=== PATIENT | female | born 1970 | race Caucasian/White ===

== ENCOUNTER → 2019-03-26 07:54 | Outpatient (CLI) | payer OTHER, SELFPAY ==
[2019-03-26 08:37] LABS: Add Manual Diff / Slide Review NO; Basophils Absolute Auto 100 /uL (0-100); Eosinophils Absolute Auto 200 /uL (0-450); Eosinophils Percent Auto 3.2 % (2-4); Hematocrit 40.5 % (36-46); Hemoglobin 13.1 g/dL (12.0-16.0); Lymphocytes Absolute Auto 2000 /uL (1100-4500); Mean Corpuscular HGB Conc 32.4 % (30-36); Mean Corpuscular Hemoglobin 30.2 PG (26-34); Mean Corpuscular Volume 93.3 fL (80-100); Monocytes Absolute Auto 500 /uL (0-900); Monocytes Percent Auto 7.9 % (3-14); Neutrophils Absolute Auto 3700 /uL (1500-7000); Neutrophils Percent Auto 56.9 % (50-75); Platelet Count 250 X10^3/uL (150-400); Red Blood Cell Count 4.34 X10^6/uL (4.0-5.2); White Blood Cell Count 6.5 X10^3/uL (4.5-11.0)
[2019-03-26 08:45] LABS: Hemoglobin A1C% w Est Avg Glu 5.2 % (4.0-6.0)
[2019-03-26 08:55] LABS: Alanine Aminotransferase 24 IU/L (9-52); Albumin 4.1 g/dL (3.5-5.0); Albumin Globulin Ratio 1.3 (1.0-2.8); Alkaline Phosphatase 38 U/L (38-126); Aspartate Aminotransferase 36 IU/L (14-36); Bilirubin Total 0.9 mg/dL (0.2-1.3); Blood Urea Nitrogen 20 mg/dL (7-17); Calcium 9.1 mg/dL (8.4-10.2); Carbon Dioxide 26 mmol/L (22-32); Chloride 105 mmol/L (98-107); Estimated Glomerular Filt Rate > 60.0 mL/min (>60); Globulin 3.1 g/dL (1.7-4.1); Glucose 106 mg/dL (70-100); HEMOLYSIS < 15 (0-50); Iron 170 ug/dL (37-170); Potassium 4.1 mmol/L (3.4-5.1); Sodium 137 mmol/L (137-145); Total Protein 7.2 g/dL (6.3-8.2)
[2019-03-26 09:11] LABS: Vitamin D 25 Hydroxy (D3) 40.4 ng/mL (30.0-100.0)
[2019-03-26 09:26] LABS: Thyroid Stimulating Hormone 2.93 uIU/mL (0.47-4.68)
== END ==
PROVIDERS: Family Provider Physician Assistant; PCP Physician Assistant; Visit Provider Physician Assistant
DX: Z00.00 Encounter for general adult medical examination without abnormal findings (principal)
CPT/HCPCS: 36415; 80053; 82306; 83036; 83540; 84443; 85025

== ENCOUNTER → 2019-11-28 17:13 | Outpatient (CLI) | payer OTHER, SELFPAY ==
--- NOTE | 2019-11-28 17:16 | DI.RAD.S_ITS ---
PROCEDURE: XR PELVIS 1-2V INDICATIONS: three weeks of severe pain TECHNIQUE: 1 view of the pelvis acquired. COMPARISON: None. FINDINGS: Bones: No fractures or dislocations. No suspicious bony lesions. Soft tissues: Visualized bowel gas pattern is normal. No suspicious soft tissue calcifications. IMPRESSION: No visualized acute fracture or dislocation. However, if clinical concern and/or pain persist, short interval imaging followup in 7-10 days is recommended, as occult injury cannot be definitively excluded. Dictated by: Betty High M.D. on 11/29/2019 at 9:45 Approved by: Betty High M.D. on 11/29/2019 at 9:46
== END ==
PROVIDERS: Family Provider Physician Assistant; PCP Physician Assistant; Visit Provider Family Medicine
DX: M54.40 Lumbago with sciatica, unspecified side (principal)
CPT/HCPCS: 72170

== ENCOUNTER → 2020-06-10 07:23 | Outpatient (CLI) | payer OTHER, SELFPAY ==
[2020-06-10 08:29] LABS: Add Manual Diff / Slide Review NO; Basophils Absolute Auto 100 /uL (0-100); Basophils Percent Auto 1.1 % (0-2); Eosinophils Absolute Auto 300 /uL (0-450); Eosinophils Percent Auto 3.3 % (2-4); Hematocrit 37.3 % (36-46); Hemoglobin 12.4 g/dL (12.0-16.0); Lymphocytes Absolute Auto 2700 /uL (1100-4500); Lymphocytes Percent Auto 34.7 % (25-40); Mean Corpuscular HGB Conc 33.2 % (30-36); Mean Corpuscular Hemoglobin 30.9 PG (26-34); Monocytes Absolute Auto 700 /uL (0-900); Monocytes Percent Auto 8.4 % (3-14); Neutrophils Absolute Auto 4100 /uL (1500-7000); Neutrophils Percent Auto 52.5 % (50-75); Platelet Count 283 X10^3/uL (150-400); Red Blood Cell Count 4.01 X10^6/uL (4.0-5.2); Red Cell Distribution Width 13.2 % (11.6-14.8); White Blood Cell Count 7.8 X10^3/uL (4.5-11.0)
[2020-06-10 09:04] LABS: Albumin 4.1 g/dL (3.5-5.0); Albumin Globulin Ratio 1.6 (1.0-2.8); Alkaline Phosphatase 39 U/L (38-126); Aspartate Aminotransferase 37 IU/L (14-36); BUN Creatinine Ratio 22.4 (6-22); Bilirubin Total 0.6 mg/dL (0.2-1.3); Blood Urea Nitrogen 17 mg/dL (7-17); Calcium 9.7 mg/dL (8.4-10.2); Carbon Dioxide 28 mmol/L (22-32); Chloride 104 mmol/L (98-107); Cholesterol 199 mg/dL (140-199); Estimated Glomerular Filt Rate > 60.0 mL/min (>60); Globulin 2.6 g/dL (1.7-4.1); Glucose 105 mg/dL (70-100); HDL Cholesterol 74 mg/dL (40-60); HEMOLYSIS < 15 (0-50); LDL Cholesterol Calculated 109 mg/dL (<100); Potassium 4.3 mmol/L (3.4-5.1); Sodium 137 mmol/L (137-145); Total Protein 6.7 g/dL (6.3-8.2); Triglycerides 79 mg/dL (35-150)
[2020-06-10 09:05] LABS: C-Reactive Protein Quant < 0.5 mg/dL (<1.0)
[2020-06-10 09:13] LABS: Free T4, Direct Thyroxine 1.16 ng/dL (0.78-2.19)
[2020-06-10 09:15] LABS: Vitamin D 25 Hydroxy (D3) 59.5 ng/mL (30.0-100.0)
[2020-06-10 09:27] LABS: Thyroid Stimulating Hormone 3.45 uIU/mL (0.47-4.68)
[2020-06-10 09:33] LABS: Ferritin 10 ng/mL (11-264)
[2020-06-10 14:30] LABS: Alanine Aminotransferase 31 IU/L (<35)
== END ==
PROVIDERS: PCP Family Medicine; Referring Provider Family Medicine; Visit Provider Family Medicine
DX: Z00.00 Encounter for general adult medical examination without abnormal findings (principal); L65.9 Nonscarring hair loss, unspecified; Z86.2 Personal history of diseases of the blood and blood-forming organs and certain disorders involving the immune mechanism; E55.9 Vitamin D deficiency, unspecified
CPT/HCPCS: 36415; 80053; 80061; 82306; 82728; 84439; 84443; 84481; 85025; 86140

== ENCOUNTER 2020-06-17 12:00 | Outpatient (RCR) | payer OTHER, SELFPAY ==
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
--- NOTE | 2020-02-03 13:02 | PT.OTN ---
Current Diagnoses Lesion of sciatic nerve, left lower limb (02/03/20) Low back pain (02/03/20) Iliotibial band syndrome, left leg (02/03/20) Physical Therapy Treatment Note PT-OP-A Visit Information Start: 01/28/20 15:35 Freq: Status: Active Protocol: Document 02/03/20 12:20 MB (Rec: 02/03/20 13:00 MB [id number]) Out-Patient Physical Therapy Visit Information Visit Information Visit Type Treatment Note Visit Note Pt has cost share insurance and high OOP Visit Start Time 12:20 Visit Stop Time 13:00 Total Visit Minutes 40 Visit Number 2 PT-OP-B Current Condition Start: 01/28/20 15:35 Freq: Status: Active Protocol: Document 01/29/20 13:45 MB (Rec: 01/29/20 14:44 MB [id number]) Current Condition History of Current Condition Onset Date October 2019 Current Complaints Sacral and LB and left ischial pain and left hamstring numbness History of Current Condition Left sacral and left ischial tuberosity pain and numbness down left hamstring and tenderness down lateral left leg proximal part after foot went out from under her with a jerk and catch down hill. She has numbness down to her left toes. Pt likes to hike and con't to take her dogs out. She uses her hiking sticks when she walks. Pt has trouble walking down the steps. She has 7 steps in the house. Her pain gets as bad as 8/10. 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 One was bad as far as the epidural. She felt like her center of gravity changed after first child. She describes inability to do aerial cartwheels and dive off spring board afterwards. Prior Treatments and Tests Left elbow and shoulder injury and ongoing left upper shoulder/neck pain after fall 10 years ago Left thumb arthritis and pain. Pt has been getting dry needling from Dr. Fernández for upper traps, mid back, sacrum and left glutes. She got a steroid injection in left greater trochanter bursa and she is on her third round of Prednisone. She occ takes muscle relaxer. Pelvis x-ray negative Treatment Goals Patient/Caregiver Goals To decrease pain and increase mobility and strength PT-OP-C Subjective Start: 01/28/20 15:35 Freq: Status: Active Protocol: Document 02/03/20 12:20 MB (Rec: 02/03/20 13:02 MB [id number]) OP-PT Subjective Patient Comments Patient Comments Pt asks about SI belt. PT-OP-D Balance Start: 01/28/20 15:35 Freq: Status: Active Protocol: Document 01/29/20 13:45 MB (Rec: 01/29/20 15:10 MB [id number]) OP-PT Balance Assessment Sitting Balance Static Sitting Balance Ability Good Dynamic Sitting Balance Ability Good Sitting Balance Comments UE support, unweights left hip Standing Balance Static Standing Balance Ability Good Dynamic Standing Balance Ability Good Standing Balance Comments Off weights her left foot in standing Balance Tests Single Limb Standing Single Limb- Right 20 sec Single Limb- Left 20 sec Gandara Fall Scale Copyright Permission PT-OP-G Mobility & Gait Start: 01/28/20 15:35 Freq: Status: Active Protocol: Document 01/29/20 13:45 MB (Rec: 01/29/20 15:10 MB [id number]) OP Gait Assessment Gait Gait Assistance Required: Independent Distance (Feet) 100 Able to Maintain Weight Bearing Status Yes During Gait Gait Deviations General Gait Pattern Antalgic Comments Gait Comments Favors LLE with decreased step -length, left WB and push off PT-OP-J Posture/Palpation/Skin Start: 01/28/20 15:35 Freq: Status: Active Protocol: Document 01/29/20 13:45 MB (Rec: 01/29/20 15:10 MB [id number]) Posture Evaluation Comments Posture Comments Standing: decreased cervical lordosis, lower two cervical vertebra protruding, decreased thoracic kyphosis, increased lumbar lordosis, anterior tilt pelvis, left iliac crest 1/8 higher than the right, left lower ribs more protruded than the right, left SC joint is 1 /4 lower and more protruded than the right. She is right handed L SI stiff with right SB and mild discomfort with right SB. L SI joint stiff with compression in supine. Pt favors flexion and her hamstrings bend knees with reaching down to 2 above the floor. Her spinal extension is greatest at her thoracic and upper lumbar spine. No increased LE symptoms with repeated flexion and extension . PT-OP-K Range of Motion Start: 01/28/20 15:35 Freq: Status: Active Protocol: Document 01/29/20 13:45 MB (Rec: 01/29/20 15:10 MB [id number]) Lumbar Spine Range of Motion Lumbar Spine Active Comments L SI stiff with right SB and mild discomfort with right SB. L SI joint stiff with compression in supine. Pt favors flexion and her hamstrings bend knees with reaching down to 2 above the floor. Her spinal extension is greatest at her thoracic and upper lumbar spine. No increased LE symptoms with repeated flexion and extension . Hip Goniometric Range of Motion Hip ROM Limitations Comments B SLR no limitations and pt states that it feels good PT-OP-L Special Tests Start: 01/28/20 15:35 Freq: Status: Active Protocol: Document 01/29/20 13:45 MB (Rec: 01/29/20 15:10 MB [id number]) Special Tests Lumbar Spine Special Tests Slump Test Results R negative, L increased tightness to pain posterior left thigh to calf Hip Special Tests Scour Test Test Results Right negative, left provokes posterior hip pain CHE Test Results Tightness right greater than left hip, no real pain PT-OP-M Strength Start: 01/28/20 15:35 Freq: Status: Active Protocol: Document 01/29/20 13:45 MB (Rec: 01/29/20 15:10 MB [id number]) Hip Strength Hip Manual Muscle Testing Left Flexion (L2) 4 Good Extension (S1) 2+ Poor+ Abduction 3+ Fair+ Comments Supine hip flexion and abduction Prone hip extension Right Flexion (L2) 4 Good Extension (S1) 3 Fair Abduction 4 Good Reason Not Measured Behavior Comments Supine hip flexion and abduction Prone hip extension Knee Strength Knee Manual Muscle Testing Left Flexion (S2) 4 Good Extension (L3) 5 Normal Right Flexion (S2) 4 Good Extension (L3) 5 Normal Ankle/Foot Strength Ankle and Foot Manual Muscle Testing Left Dorsiflexion (L4) 5 Normal Right Dorsiflexion (L4) 5 Normal Toe Strength Toe Manual Muscle Testing Left Great Toe Extension 5 Normal Right Great Toe Extension 3+ Fair+ PT-OP-Q Treatments Start: 01/28/20 15:35 Freq: Status: Active Protocol: Document 02/03/20 12:20 MB (Rec: 02/03/20 13:00 MB [id number]) Therapeutic Exercises Supine Exercises 1 Supine Exercise Name Abdominal drawing in hook lying Comments several reps, hold up to 30 sec Abraham stretch Comments 30 sec each side, abdominal drawing in Pelvic realignment exercises Comments 5 reps 3 sec hold each Manual Therapy Treatment Other Other Manual Treatments MWM hip flexor with PT providing trigger point therapy and pt performing active HS, also performed STM B rectus femoris PT-OP-T Assessment and Plan Start: 01/28/20 15:35 Freq: Status: Active Protocol: Document 02/03/20 12:20 MB (Rec: 02/03/20 13:00 MB [id number]) Physical Therapy Assessment Rehab Potential Rehabilitation Potential Good Evaluation Complexity Number of Personal Factors/Comorbidities 0 Number of Body Systems Impaired 1-2 Clinical Presentation at Evaluation Evolving Impairments Impairments Gait,Pain,Posture,ROM,Soft Tissue Mobility,Strength Other Impairments Unsure if her clinical presentation is stable or evolving: she still has pain since October and since receiving dry needling, cortisone injection, Prednisone and muscle relaxer Goals 5 Manager Paid Goal (LTG) Pt will report an 85% improvement in back and leg pain and leg paresthesias by . LTG Duration 8 weeks 4 Manager Paid Goal (LTG) Pt will perform progressive HEP including pelvic realignment, pelvic floor, appropriate flexibility, strengthening and balance exercises with I to reduce pain and improve strength by . LTG Duration 8 weeks 3 Manager Paid Goal (LTG) Pt will ascend and descend 7 steps with 1 rail and reciprocal gait pattern to allow safe home mobility by 03/30/2020. LTG Duration 8 weeks 2 Long-Term Goal (LTG) Pt will present with improved B hip flexion and abduction and knee flexion strength to 5 /5 to improve sit to stand ability and stair mobility by 03/30/2020. LTG Duration 8 weeks 1 Manager Paid Goal (LTG) Pt will present with improved Oswestry LBP score to reflect no more than 15% impairment to allow return to normal active lifestyle by 03/30/2020. LTG Duration 8 weeks Assessment Summary Assessment Con't PT for manual work, flexibility, strengthening and biofeedback. Pt presents with fascial tension hip flexors and rectus. Physical Therapy Plan Frequency and Duration Frequency of Treatment 2x/Week Duration of Treatment 8 weeks Plan of Care Start Date 01/29/20 Plan of Care End Date 03/30/20 Therapeutic Interventions Therapeutic Interventions Aquatic Therapy,Balance Training,Gait Training,Home Exercise Program,Joint Mobilizations,Manual Therapy, Neuromuscular Re-education, Patient/Caregiver Education, Self-Care/Home Management, Sensory Integration,Soft Tissue Mobilization,Taping, Therapeutic Exercises Modalities Biofeedback,Cold Pack/Ice Massage,Electric Stimulation, Hot Packs,Ultrasound Other Therapeutic Interventions LLT Other Referrals/Consults Referrals/Consults Recommended PT schedules 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
--- NOTE | 2020-02-10 12:08 | PT.OTN ---
Current Diagnoses Lesion of sciatic nerve, left lower limb (02/10/20) Low back pain (02/10/20) Iliotibial band syndrome, left leg (02/10/20) Physical Therapy Treatment Note PT-OP-A Visit Information Start: 01/28/20 15:35 Freq: Status: Active Protocol: Document 02/10/20 11:19 MB (Rec: 02/10/20 12:08 MB [id number]) Out-Patient Physical Therapy Visit Information Visit Information Visit Type Treatment Note Visit Note Pt has cost share insurance and high OOP Visit Start Time 11:19 Visit Stop Time 12:00 Total Visit Minutes 41 Visit Number 3 PT-OP-B Current Condition Start: 01/28/20 15:35 Freq: Status: Active Protocol: Document 01/29/20 13:45 MB (Rec: 01/29/20 14:44 MB [id number]) Current Condition History of Current Condition Onset Date October 2019 Current Complaints Sacral and LB and left ischial pain and left hamstring numbness History of Current Condition Left sacral and left ischial tuberosity pain and numbness down left hamstring and tenderness down lateral left leg proximal part after foot went out from under her with a jerk and catch down hill. She has numbness down to her left toes. Pt likes to hike and con't to take her dogs out. She uses her hiking sticks when she walks. Pt has trouble walking down the steps. She has 7 steps in the house. Her pain gets as bad as 8/10. 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 One was bad as far as the epidural. She felt like her center of gravity changed after first child. She describes inability to do aerial cartwheels and dive off spring board afterwards. Prior Treatments and Tests Left elbow and shoulder injury and ongoing left upper shoulder/neck pain after fall 10 years ago Left thumb arthritis and pain. Pt has been getting dry needling from Dr. Fernández for upper traps, mid back, sacrum and left glutes. She got a steroid injection in left greater trochanter bursa and she is on her third round of Prednisone. She occ takes muscle relaxer. Pelvis x-ray negative Treatment Goals Patient/Caregiver Goals To decrease pain and increase mobility and strength PT-OP-C Subjective Start: 01/28/20 15:35 Freq: Status: Active Protocol: Document 02/10/20 11:19 MB (Rec: 02/10/20 12:08 MB [id number]) OP-PT Subjective Patient Comments Patient Comments Pt reports that she is hurting today. PT-OP-D Balance Start: 01/28/20 15:35 Freq: Status: Active Protocol: Document 01/29/20 13:45 MB (Rec: 01/29/20 15:10 MB [id number]) OP-PT Balance Assessment Sitting Balance Static Sitting Balance Ability Good Dynamic Sitting Balance Ability Good Sitting Balance Comments UE support, unweights left hip Standing Balance Static Standing Balance Ability Good Dynamic Standing Balance Ability Good Standing Balance Comments Off weights her left foot in standing Balance Tests Single Limb Standing Single Limb- Right 20 sec Single Limb- Left 20 sec Gandara Fall Scale Copyright Permission PT-OP-G Mobility & Gait Start: 01/28/20 15:35 Freq: Status: Active Protocol: Document 01/29/20 13:45 MB (Rec: 01/29/20 15:10 MB [id number]) OP Gait Assessment Gait Gait Assistance Required: Independent Distance (Feet) 100 Able to Maintain Weight Bearing Status Yes During Gait Gait Deviations General Gait Pattern Antalgic Comments Gait Comments Favors LLE with decreased step -length, left WB and push off PT-OP-J Posture/Palpation/Skin Start: 01/28/20 15:35 Freq: Status: Active Protocol: Document 01/29/20 13:45 MB (Rec: 01/29/20 15:10 MB [id number]) Posture Evaluation Comments Posture Comments Standing: decreased cervical lordosis, lower two cervical vertebra protruding, decreased thoracic kyphosis, increased lumbar lordosis, anterior tilt pelvis, left iliac crest 1/8 higher than the right, left lower ribs more protruded than the right, left SC joint is 1 /4 lower and more protruded than the right. She is right handed L SI stiff with right SB and mild discomfort with right SB. L SI joint stiff with compression in supine. Pt favors flexion and her hamstrings bend knees with reaching down to 2 above the floor. Her spinal extension is greatest at her thoracic and upper lumbar spine. No increased LE symptoms with repeated flexion and extension . PT-OP-K Range of Motion Start: 01/28/20 15:35 Freq: Status: Active Protocol: Document 01/29/20 13:45 MB (Rec: 01/29/20 15:10 MB [id number]) Lumbar Spine Range of Motion Lumbar Spine Active Comments L SI stiff with right SB and mild discomfort with right SB. L SI joint stiff with compression in supine. Pt favors flexion and her hamstrings bend knees with reaching down to 2 above the floor. Her spinal extension is greatest at her thoracic and upper lumbar spine. No increased LE symptoms with repeated flexion and extension . Hip Goniometric Range of Motion Hip ROM Limitations Comments B SLR no limitations and pt states that it feels good PT-OP-L Special Tests Start: 01/28/20 15:35 Freq: Status: Active Protocol: Document 01/29/20 13:45 MB (Rec: 01/29/20 15:10 MB [id number]) Special Tests Lumbar Spine Special Tests Slump Test Results R negative, L increased tightness to pain posterior left thigh to calf Hip Special Tests Scour Test Test Results Right negative, left provokes posterior hip pain CHE Test Results Tightness right greater than left hip, no real pain PT-OP-M Strength Start: 01/28/20 15:35 Freq: Status: Active Protocol: Document 01/29/20 13:45 MB (Rec: 01/29/20 15:10 MB [id number]) Hip Strength Hip Manual Muscle Testing Left Flexion (L2) 4 Good Extension (S1) 2+ Poor+ Abduction 3+ Fair+ Comments Supine hip flexion and abduction Prone hip extension Right Flexion (L2) 4 Good Extension (S1) 3 Fair Abduction 4 Good Reason Not Measured Behavior Comments Supine hip flexion and abduction Prone hip extension Knee Strength Knee Manual Muscle Testing Left Flexion (S2) 4 Good Extension (L3) 5 Normal Right Flexion (S2) 4 Good Extension (L3) 5 Normal Ankle/Foot Strength Ankle and Foot Manual Muscle Testing Left Dorsiflexion (L4) 5 Normal Right Dorsiflexion (L4) 5 Normal Toe Strength Toe Manual Muscle Testing Left Great Toe Extension 5 Normal Right Great Toe Extension 3+ Fair+ PT-OP-Q Treatments Start: 01/28/20 15:35 Freq: Status: Active Protocol: Document 02/10/20 11:19 MB (Rec: 02/10/20 12:08 MB [id number]) Manual Therapy Treatment Other Other Manual Treatments Pt agrees to Counterstrain to assess and treat fascial tension and PT treats stacks: spinal medullary and standard lymphatic row. PT-OP-T Assessment and Plan Start: 01/28/20 15:35 Freq: Status: Active Protocol: Document 02/10/20 11:19 MB (Rec: 02/10/20 12:08 MB [id number]) Physical Therapy Assessment Rehab Potential Rehabilitation Potential Good Evaluation Complexity Number of Personal Factors/Comorbidities 0 Number of Body Systems Impaired 1-2 Clinical Presentation at Evaluation Evolving Impairments Impairments Gait,Pain,Posture,ROM,Soft Tissue Mobility,Strength Other Impairments Unsure if her clinical presentation is stable or evolving: she still has pain since October and since receiving dry needling, cortisone injection, Prednisone and muscle relaxer Goals 5 Web Interface Developer Goal (LTG) Pt will report an 85% improvement in back and leg pain and leg paresthesias by . LTG Duration 8 weeks 4 Web Interface Developer Goal (LTG) Pt will perform progressive HEP including pelvic realignment, pelvic floor, appropriate flexibility, strengthening and balance exercises with I to reduce pain and improve strength by . LTG Duration 8 weeks 3 [facility] Goal (LTG) Pt will ascend and descend 7 steps with 1 rail and reciprocal gait pattern to allow safe home mobility by 03/30/2020. LTG Duration 8 weeks 2 [facility] Goal (LTG) Pt will present with improved B hip flexion and abduction and knee flexion strength to 5 /5 to improve sit to stand ability and stair mobility by 03/30/2020. LTG Duration 8 weeks 1 [facility] Goal (LTG) Pt will present with improved Oswestry LBP score to reflect no more than 15% impairment to allow return to normal active lifestyle by 03/30/2020. LTG Duration 8 weeks Assessment Summary Assessment Initiated Counterstrain today and pt con't with fascial tightness per scan. She will see Dr. Fernández on Mon. She does have improved left sacrotuberous and hip rotator tension after treatment. Con't PT for manual work, flexibility, strengthening and biofeedback. Pt presents with fascial tension hip flexors and rectus. Physical Therapy Plan Frequency and Duration Frequency of Treatment 2x/Week Duration of Treatment 8 weeks Plan of Care Start Date 01/29/20 Plan of Care End Date 03/30/20 Therapeutic Interventions Therapeutic Interventions Aquatic Therapy,Balance Training,Gait Training,Home Exercise Program,Joint Mobilizations,Manual Therapy, Neuromuscular Re-education, Patient/Caregiver Education, Self-Care/Home Management, Sensory Integration,Soft Tissue Mobilization,Taping, Therapeutic Exercises Modalities Biofeedback,Cold Pack/Ice Massage,Electric Stimulation, Hot Packs,Ultrasound Other Therapeutic Interventions LLT Other Referrals/Consults Referrals/Consults Recommended PT schedules pt with pelvic floor hand as well Next Visit Focus/Plan Next Note Type Treatment Note Next Visit Plan Consider diaphragmatic breathing and pelvic drop, further progression, quad rolling
--- NOTE | 2020-02-12 15:16 | PT.OTN ---
Current Diagnoses Lesion of sciatic nerve, left lower limb (02/12/20) Low back pain (02/12/20) Iliotibial band syndrome, left leg (02/12/20) Physical Therapy Treatment Note PT-OP-A Visit Information Start: 01/28/20 15:35 Freq: Status: Active Protocol: Document 02/12/20 14:31 MB (Rec: 02/12/20 15:16 MB [id number]) Out-Patient Physical Therapy Visit Information Visit Information Visit Type Treatment Note Visit Note Pt has cost share insurance and high OOP Visit Start Time 14:31 Visit Stop Time 15:15 Total Visit Minutes 44 Visit Number 4 PT-OP-B Current Condition Start: 01/28/20 15:35 Freq: Status: Active Protocol: Document 01/29/20 13:45 MB (Rec: 01/29/20 14:44 MB [id number]) Current Condition History of Current Condition Onset Date October 2019 Current Complaints Sacral and LB and left ischial pain and left hamstring numbness History of Current Condition Left sacral and left ischial tuberosity pain and numbness down left hamstring and tenderness down lateral left leg proximal part after foot went out from under her with a jerk and catch down hill. She has numbness down to her left toes. Pt likes to hike and con't to take her dogs out. She uses her hiking sticks when she walks. Pt has trouble walking down the steps. She has 7 steps in the house. Her pain gets as bad as 8/10. 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 One was bad as far as the epidural. She felt like her center of gravity changed after first child. She describes inability to do aerial cartwheels and dive off spring board afterwards. Prior Treatments and Tests Left elbow and shoulder injury and ongoing left upper shoulder/neck pain after fall 10 years ago Left thumb arthritis and pain. Pt has been getting dry needling from Dr. Fernández for upper traps, mid back, sacrum and left glutes. She got a steroid injection in left greater trochanter bursa and she is on her third round of Prednisone. She occ takes muscle relaxer. Pelvis x-ray negative Treatment Goals Patient/Caregiver Goals To decrease pain and increase mobility and strength PT-OP-C Subjective Start: 01/28/20 15:35 Freq: Status: Active Protocol: Document 02/12/20 14:31 MB (Rec: 02/12/20 15:16 MB [id number]) OP-PT Subjective Patient Comments Patient Comments Pt states that she is feeling better today. She is intermittently better and feels that PT is helpful. She wants to con't with PT to not lose momentum. PT-OP-D Balance Start: 01/28/20 15:35 Freq: Status: Active Protocol: Document 01/29/20 13:45 MB (Rec: 01/29/20 15:10 MB [id number]) OP-PT Balance Assessment Sitting Balance Static Sitting Balance Ability Good Dynamic Sitting Balance Ability Good Sitting Balance Comments UE support, unweights left hip Standing Balance Static Standing Balance Ability Good Dynamic Standing Balance Ability Good Standing Balance Comments Off weights her left foot in standing Balance Tests Single Limb Standing Single Limb- Right 20 sec Single Limb- Left 20 sec Gandara Fall Scale Copyright Permission PT-OP-G Mobility & Gait Start: 01/28/20 15:35 Freq: Status: Active Protocol: Document 01/29/20 13:45 MB (Rec: 01/29/20 15:10 MB [id number]) OP Gait Assessment Gait Gait Assistance Required: Independent Distance (Feet) 100 Able to Maintain Weight Bearing Status Yes During Gait Gait Deviations General Gait Pattern Antalgic Comments Gait Comments Favors LLE with decreased step -length, left WB and push off PT-OP-J Posture/Palpation/Skin Start: 01/28/20 15:35 Freq: Status: Active Protocol: Document 01/29/20 13:45 MB (Rec: 01/29/20 15:10 MB [id number]) Posture Evaluation Comments Posture Comments Standing: decreased cervical lordosis, lower two cervical vertebra protruding, decreased thoracic kyphosis, increased lumbar lordosis, anterior tilt pelvis, left iliac crest 1/8 higher than the right, left lower ribs more protruded than the right, left SC joint is 1 /4 lower and more protruded than the right. She is right handed L SI stiff with right SB and mild discomfort with right SB. L SI joint stiff with compression in supine. Pt favors flexion and her hamstrings bend knees with reaching down to 2 above the floor. Her spinal extension is greatest at her thoracic and upper lumbar spine. No increased LE symptoms with repeated flexion and extension . PT-OP-K Range of Motion Start: 01/28/20 15:35 Freq: Status: Active Protocol: Document 01/29/20 13:45 MB (Rec: 01/29/20 15:10 MB [id number]) Lumbar Spine Range of Motion Lumbar Spine Active Comments L SI stiff with right SB and mild discomfort with right SB. L SI joint stiff with compression in supine. Pt favors flexion and her hamstrings bend knees with reaching down to 2 above the floor. Her spinal extension is greatest at her thoracic and upper lumbar spine. No increased LE symptoms with repeated flexion and extension . Hip Goniometric Range of Motion Hip ROM Limitations Comments B SLR no limitations and pt states that it feels good PT-OP-L Special Tests Start: 01/28/20 15:35 Freq: Status: Active Protocol: Document 01/29/20 13:45 MB (Rec: 01/29/20 15:10 MB [id number]) Special Tests Lumbar Spine Special Tests Slump Test Results R negative, L increased tightness to pain posterior left thigh to calf Hip Special Tests Scour Test Test Results Right negative, left provokes posterior hip pain CHE Test Results Tightness right greater than left hip, no real pain PT-OP-M Strength Start: 01/28/20 15:35 Freq: Status: Active Protocol: Document 01/29/20 13:45 MB (Rec: 01/29/20 15:10 MB [id number]) Hip Strength Hip Manual Muscle Testing Left Flexion (L2) 4 Good Extension (S1) 2+ Poor+ Abduction 3+ Fair+ Comments Supine hip flexion and abduction Prone hip extension Right Flexion (L2) 4 Good Extension (S1) 3 Fair Abduction 4 Good Reason Not Measured Behavior Comments Supine hip flexion and abduction Prone hip extension Knee Strength Knee Manual Muscle Testing Left Flexion (S2) 4 Good Extension (L3) 5 Normal Right Flexion (S2) 4 Good Extension (L3) 5 Normal Ankle/Foot Strength Ankle and Foot Manual Muscle Testing Left Dorsiflexion (L4) 5 Normal Right Dorsiflexion (L4) 5 Normal Toe Strength Toe Manual Muscle Testing Left Great Toe Extension 5 Normal Right Great Toe Extension 3+ Fair+ PT-OP-Q Treatments Start: 01/28/20 15:35 Freq: Status: Active Protocol: Document 02/12/20 14:31 MB (Rec: 02/12/20 15:16 MB [id number]) Manual Therapy Treatment Other Other Manual Treatments Pt agrees to Counterstrain to assess and treat fascial tension and PT treats stacks: left DPT and left facial nerve fascia, gentle STM left forearm PT-OP-T Assessment and Plan Start: 01/28/20 15:35 Freq: Status: Active Protocol: Document 02/12/20 14:31 MB (Rec: 02/12/20 15:16 MB [id number]) Physical Therapy Assessment Rehab Potential Rehabilitation Potential Good Evaluation Complexity Number of Personal Factors/Comorbidities 0 Number of Body Systems Impaired 1-2 Clinical Presentation at Evaluation Evolving Impairments Impairments Gait,Pain,Posture,ROM,Soft Tissue Mobility,Strength Other Impairments Unsure if her clinical presentation is stable or evolving: she still has pain since October and since receiving dry needling, cortisone injection, Prednisone and muscle relaxer Goals 5 Size Mixer Goal (LTG) Pt will report an 85% improvement in back and leg pain and leg paresthesias by . LTG Duration 8 weeks 4 Size Mixer Goal (LTG) Pt will perform progressive HEP including pelvic realignment, pelvic floor, appropriate flexibility, strengthening and balance exercises with I to reduce pain and improve strength by . LTG Duration 8 weeks 3 Group Home Goal (LTG) Pt will ascend and descend 7 steps with 1 rail and reciprocal gait pattern to allow safe home mobility by 03/30/2020. LTG Duration 8 weeks 2 Size Mixer Goal (LTG) Pt will present with improved B hip flexion and abduction and knee flexion strength to 5 /5 to improve sit to stand ability and stair mobility by 03/30/2020. LTG Duration 8 weeks 1 Group Home Goal (LTG) Pt will present with improved Oswestry LBP score to reflect no more than 15% impairment to allow return to normal active lifestyle by 03/30/2020. LTG Duration 8 weeks Assessment Summary Assessment Pt is responding well to Counterstrain, has less pain. Pt does have some history of trauma and this might affect her fascial tension. Con't PT for manual work, flexibility, strengthening and biofeedback. Pt presents with fascial tension hip flexors and rectus . Physical Therapy Plan Frequency and Duration Frequency of Treatment 2x/Week Duration of Treatment 8 weeks Plan of Care Start Date 01/29/20 Plan of Care End Date 03/30/20 Therapeutic Interventions Therapeutic Interventions Aquatic Therapy,Balance Training,Gait Training,Home Exercise Program,Joint Mobilizations,Manual Therapy, Neuromuscular Re-education, Patient/Caregiver Education, Self-Care/Home Management, Sensory Integration,Soft Tissue Mobilization,Taping, Therapeutic Exercises Modalities Biofeedback,Cold Pack/Ice Massage,Electric Stimulation, Hot Packs,Ultrasound Other Therapeutic Interventions LLT Other Referrals/Consults Referrals/Consults Recommended PT schedules pt with pelvic floor renovator as well Next Visit Focus/Plan Next Note Type Treatment Note Next Visit Plan Consider diaphragmatic breathing and pelvic drop, further progression, quad rolling
--- NOTE | 2020-03-07 11:27 | PT-IP ANOTE ---
28' call. PT calls pt. Pt states that she was doing really well until yesterday when her dogs pulled her on the leash. She is performing pelvic realignment exercises and Abraham stretch. Pt asks about light triceps and biceps work and use of foam roller. PT encourages pt to not lift weights currently. She is unsure about e-visits given insurance situation.
--- NOTE | 2020-03-21 17:18 | PT-OP ANOTE ---
PT calls pt. PT communicates that we do not know yet when clinic will reopen, that clinic hours will be limited to begin with, that therapists and patients will wear masks and that the gym situation will allow for 6 feet between patients. PT does communicate that PT has been providing manual care to patient and so pt and PT will be in nearer proximity. PT communicates that pt can decide if she wants to con't with PT when the clinic opens pending her current functional status and I with HEP.
--- NOTE | 2020-04-09 18:00 | PT.OTN ---
Current Diagnoses Lesion of sciatic nerve, left lower limb (04/09/20) Low back pain (04/09/20) Iliotibial band syndrome, left leg (04/09/20) Physical Therapy Treatment Note PT-OP-A Visit Information Start: 01/28/20 15:35 Freq: Status: Active Protocol: Document 04/09/20 15:17 MB (Rec: 04/09/20 16:00 MB [id number]) Out-Patient Physical Therapy Visit Information Visit Information Visit Type Progress Note Visit Note Pt has cost share insurance and high OOP Visit Start Time 15:17 Visit Stop Time 16:00 Total Visit Minutes 43 Visit Number 5 PT-OP-B Current Condition Start: 01/28/20 15:35 Freq: Status: Active Protocol: Document 01/29/20 13:45 MB (Rec: 01/29/20 14:44 MB [id number]) Current Condition History of Current Condition Onset Date October 2019 Current Complaints Sacral and LB and left ischial pain and left hamstring numbness History of Current Condition Left sacral and left ischial tuberosity pain and numbness down left hamstring and tenderness down lateral left leg proximal part after foot went out from under her with a jerk and catch down hill. She has numbness down to her left toes. Pt likes to hike and con't to take her dogs out. She uses her hiking sticks when she walks. Pt has trouble walking down the steps. She has 7 steps in the house. Her pain gets as bad as 8/10. 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 One was bad as far as the epidural. She felt like her center of gravity changed after first child. She describes inability to do aerial cartwheels and dive off spring board afterwards. Prior Treatments and Tests Left elbow and shoulder injury and ongoing left upper shoulder/neck pain after fall 10 years ago Left thumb arthritis and pain. Pt has been getting dry needling from Dr. Fernández for upper traps, mid back, sacrum and left glutes. She got a steroid injection in left greater trochanter bursa and she is on her third round of Prednisone. She occ takes muscle relaxer. Pelvis x-ray negative Treatment Goals Patient/Caregiver Goals To decrease pain and increase mobility and strength PT-OP-C Subjective Start: 01/28/20 15:35 Freq: Status: Active Protocol: Document 04/09/20 15:17 MB (Rec: 04/09/20 16:00 MB [id number]) OP-PT Subjective Patient Comments Patient Comments Pt states that she had been doing really well but that her left arm started hurting her. She points to left anterior shoulder. This is related to old injury when her dog pulled her over. She has left LBP and like something is yanking on her. She is still walking 2 miles/day. Her pain gets up to 6/10. She didn't sleep very well for two nights. She does have occ pain that bothers her with sleeping. She has not been performing exercises. Patient Questionnaires Oswestry Low Back Index Oswestry Impairment 40 to 59% Impaired (Score 40- 59) PT-OP-D Balance Start: 01/28/20 15:35 Freq: Status: Active Protocol: Document 01/29/20 13:45 MB (Rec: 01/29/20 15:10 MB [id number]) OP-PT Balance Assessment Sitting Balance Static Sitting Balance Ability Good Dynamic Sitting Balance Ability Good Sitting Balance Comments UE support, unweights left hip Standing Balance Static Standing Balance Ability Good Dynamic Standing Balance Ability Good Standing Balance Comments Off weights her left foot in standing Balance Tests Single Limb Standing Single Limb- Right 20 sec Single Limb- Left 20 sec Gandara Fall Scale Copyright Permission PT-OP-G Mobility & Gait Start: 01/28/20 15:35 Freq: Status: Active Protocol: Document 01/29/20 13:45 MB (Rec: 01/29/20 15:10 MB [id number]) OP Gait Assessment Gait Gait Assistance Required: Independent Distance (Feet) 100 Able to Maintain Weight Bearing Status Yes During Gait Gait Deviations General Gait Pattern Antalgic Comments Gait Comments Favors LLE with decreased step -length, left WB and push off PT-OP-J Posture/Palpation/Skin Start: 01/28/20 15:35 Freq: Status: Active Protocol: Document 01/29/20 13:45 MB (Rec: 01/29/20 15:10 MB [id number]) Posture Evaluation Comments Posture Comments Standing: decreased cervical lordosis, lower two cervical vertebra protruding, decreased thoracic kyphosis, increased lumbar lordosis, anterior tilt pelvis, left iliac crest 1/8 higher than the right, left lower ribs more protruded than the right, left SC joint is 1 /4 lower and more protruded than the right. She is right handed L SI stiff with right SB and mild discomfort with right SB. L SI joint stiff with compression in supine. Pt favors flexion and her hamstrings bend knees with reaching down to 2 above the floor. Her spinal extension is greatest at her thoracic and upper lumbar spine. No increased LE symptoms with repeated flexion and extension . PT-OP-K Range of Motion Start: 01/28/20 15:35 Freq: Status: Active Protocol: Document 01/29/20 13:45 MB (Rec: 01/29/20 15:10 MB [id number]) Lumbar Spine Range of Motion Lumbar Spine Active Comments L SI stiff with right SB and mild discomfort with right SB. L SI joint stiff with compression in supine. Pt favors flexion and her hamstrings bend knees with reaching down to 2 above the floor. Her spinal extension is greatest at her thoracic and upper lumbar spine. No increased LE symptoms with repeated flexion and extension . Hip Goniometric Range of Motion Hip ROM Limitations Comments B SLR no limitations and pt states that it feels good PT-OP-L Special Tests Start: 01/28/20 15:35 Freq: Status: Active Protocol: Document 01/29/20 13:45 MB (Rec: 01/29/20 15:10 MB [id number]) Special Tests Lumbar Spine Special Tests Slump Test Results R negative, L increased tightness to pain posterior left thigh to calf Hip Special Tests Scour Test Test Results Right negative, left provokes posterior hip pain CHE Test Results Tightness right greater than left hip, no real pain PT-OP-M Strength Start: 01/28/20 15:35 Freq: Status: Active Protocol: Document 01/29/20 13:45 MB (Rec: 01/29/20 15:10 MB [id number]) Hip Strength Hip Manual Muscle Testing Left Flexion (L2) 4 Good Extension (S1) 2+ Poor+ Abduction 3+ Fair+ Comments Supine hip flexion and abduction Prone hip extension Right Flexion (L2) 4 Good Extension (S1) 3 Fair Abduction 4 Good Reason Not Measured Behavior Comments Supine hip flexion and abduction Prone hip extension Knee Strength Knee Manual Muscle Testing Left Flexion (S2) 4 Good Extension (L3) 5 Normal Right Flexion (S2) 4 Good Extension (L3) 5 Normal Ankle/Foot Strength Ankle and Foot Manual Muscle Testing Left Dorsiflexion (L4) 5 Normal Right Dorsiflexion (L4) 5 Normal Toe Strength Toe Manual Muscle Testing Left Great Toe Extension 5 Normal Right Great Toe Extension 3+ Fair+ PT-OP-Q Treatments Start: 01/28/20 15:35 Freq: Status: Active Protocol: Document 04/09/20 15:17 MB (Rec: 04/09/20 17:59 MB [id number]) Therapeutic Exercises Supine Exercises Pelvic realignment exercises Comments 5 reps, 3 sec hold Sitting Exercises Sitting ball squeeze Comments Sitting ball squeeze Self-Care/Home Management Treatment Education Other Education Extensive education on self- care, breathing, sleeping position, importance of performing HEP, PT plan and for ongoing communication about any financial concerns d /t insurance deductible PT-OP-T Assessment and Plan Start: 01/28/20 15:35 Freq: Status: Active Protocol: Document 04/09/20 15:17 MB (Rec: 04/09/20 16:00 MB [id number]) Physical Therapy Assessment Rehab Potential Rehabilitation Potential Good Evaluation Complexity Number of Personal Factors/Comorbidities 0 Number of Body Systems Impaired 1-2 Clinical Presentation at Evaluation Evolving Impairments Impairments Gait,Pain,Posture,ROM,Soft Tissue Mobility,Strength Other Impairments Unsure if her clinical presentation is stable or evolving: she still has pain since October and since receiving dry needling, cortisone injection, Prednisone and muscle relaxer Goals 5 Senior Living Goal (LTG) Pt will report an 85% improvement in back and leg pain and leg paresthesias by . 04/09/2020: Pt reports she was feeling much better after PT started but then pain has flared up since stopping PT. She has constant 3/10 pain in her left arm, LB and left glute. Her pain is worse in the morning. LTG Duration 8 weeks 4 Sunglass Clip Attacher Goal (LTG) Pt will perform progressive HEP including pelvic realignment, pelvic floor, appropriate flexibility, strengthening and balance exercises with I to reduce pain and improve strength by . 04/09/2020: Pt has not been performing HEP consistently LTG Duration 8 weeks 3 Senior Living Goal (LTG) Pt will ascend and descend 7 steps with 1 rail and reciprocal gait pattern to allow safe home mobility by . 04/09/2020: Pt still has trouble with reciprocal stair training LTG Duration 8 weeks 2 Sunglass Clip Attacher Goal (LTG) Pt will present with improved B hip flexion and abduction and knee flexion strength to 5 /5 to improve sit to stand ability and stair mobility by 06/09/2020. 04/09/2020: B hip flexion 4/5; left knee flexion 4/5 and reports 4/10 pain; B hip abduction 4/5 LTG Duration 8 weeks 1 Senior Living Goal (LTG) Pt will present with improved Oswestry LBP score to reflect no more than 15% impairment to allow return to normal active lifestyle by 06/09/2020. 04/09/2020: Oswestry LBP scale score reflects 40% impairment LTG Duration 8 weeks Assessment Summary Assessment Progress note after closure d/ t COVID. Pt would like to con' t with PT and she will benefit from ongoing PT to con't to improve pelvic alignment, strength and flexibility. She has made little progress towards goals but has not yet received much PT (only 3 treatments before break). Pt will also benefit from Counterstrain to asst with pain. History of trauma, possible pelvic floor contributions and left shoulder pain are contributory issues that may affect progress. Physical Therapy Plan Frequency and Duration Frequency of Treatment 2x/Week Duration of Treatment 8 weeks Plan of Care Start Date 04/09/20 Plan of Care End Date 06/09/20 Therapeutic Interventions Therapeutic Interventions Aquatic Therapy,Balance Training,Gait Training,Home Exercise Program,Joint Mobilizations,Manual Therapy, Neuromuscular Re-education, Patient/Caregiver Education, Self-Care/Home Management, Sensory Integration,Soft Tissue Mobilization,Taping, Therapeutic Exercises Modalities Biofeedback,Cold Pack/Ice Massage,Electric Stimulation, Hot Packs,Ultrasound Other Therapeutic Interventions LLT Other Referrals/Consults Referrals/Consults Recommended May consider pelvic floor cleaner work as well Next Visit Focus/Plan Next Note Type Treatment Note Next Visit Plan Consider diaphragmatic breathing and pelvic drop, further progression, quad rolling
--- NOTE | 2020-04-09 18:00 | PT.OPPOC ---
Physical, Occupational & Speech Therapy At [facility] Current Diagnoses Lesion of sciatic nerve, left lower limb (04/09/20) Low back pain (04/09/20) Iliotibial band syndrome, left leg (04/09/20) Visit Care Team Role Provider Type Cortez Fernández DO Attending Provider Physician Primary Care Provider Referring Provider Specialty: [facility] Practice Address: [address] [place] [address], [facility] Email: Plan Of Care PT-OP-T Assessment and Plan Start: 01/28/20 15:35 Freq: Status: Active Protocol: Document 04/09/20 15:17 MB (Rec: 04/09/20 16:00 MB [id number]) Physical Therapy Assessment Rehab Potential Rehabilitation Potential Good Evaluation Complexity Number of Personal Factors/Comorbidities 0 Number of Body Systems Impaired 1-2 Clinical Presentation at Evaluation Evolving Impairments Impairments Gait,Pain,Posture,ROM,Soft Tissue Mobility,Strength Other Impairments Unsure if her clinical presentation is stable or evolving: she still has pain since October and since receiving dry needling, cortisone injection, Prednisone and muscle relaxer Goals 5 Warehouse Supervisor Goal (LTG) Pt will report an 85% improvement in back and leg pain and leg paresthesias by . 04/09/2020: Pt reports she was feeling much better after PT started but then pain has flared up since stopping PT. She has constant 3/10 pain in her left arm, LB and left glute. Her pain is worse in the morning. LTG Duration 8 weeks 4 Warehouse Supervisor Goal (LTG) Pt will perform progressive HEP including pelvic realignment, pelvic floor, appropriate flexibility, strengthening and balance exercises with I to reduce pain and improve strength by . 04/09/2020: Pt has not been performing HEP consistently LTG Duration 8 weeks 3 Warehouse Supervisor Goal (LTG) Pt will ascend and descend 7 steps with 1 rail and reciprocal gait pattern to allow safe home mobility by . 04/09/2020: Pt still has trouble with reciprocal stair training LTG Duration 8 weeks 2 Warehouse Supervisor Goal (LTG) Pt will present with improved B hip flexion and abduction and knee flexion strength to 5 /5 to improve sit to stand ability and stair mobility by 06/09/2020. 04/09/2020: B hip flexion 4/5; left knee flexion 4/5 and reports 4/10 pain; B hip abduction 4/5 LTG Duration 8 weeks 1 [facility] Goal (LTG) Pt will present with improved Oswestry LBP score to reflect no more than 15% impairment to allow return to normal active lifestyle by 06/09/2020. 04/09/2020: Oswestry LBP scale score reflects 40% impairment LTG Duration 8 weeks Assessment Summary Assessment Progress note after closure d/ t COVID. Pt would like to con' t with PT and she will benefit from ongoing PT to con't to improve pelvic alignment, strength and flexibility. She has made little progress towards goals but has not yet received much PT (only 3 treatments before break). Pt will also benefit from Counterstrain to asst with pain. History of trauma, possible pelvic floor contributions and left shoulder pain are contributory issues that may affect progress. Physical Therapy Plan Frequency and Duration Frequency of Treatment 2x/Week Duration of Treatment 8 weeks Plan of Care Start Date 04/09/20 Plan of Care End Date 06/09/20 Therapeutic Interventions Therapeutic Interventions Aquatic Therapy,Balance Training,Gait Training,Home Exercise Program,Joint Mobilizations,Manual Therapy, Neuromuscular Re-education, Patient/Caregiver Education, Self-Care/Home Management, Sensory Integration,Soft Tissue Mobilization,Taping, Therapeutic Exercises Modalities Biofeedback,Cold Pack/Ice Massage,Electric Stimulation, Hot Packs,Ultrasound Other Therapeutic Interventions LLT Other Referrals/Consults Referrals/Consults Recommended May consider pelvic floor coverings installer work as well Next Visit Focus/Plan Next Note Type Treatment Note Next Visit Plan Consider diaphragmatic breathing and pelvic drop, further progression, quad rolling Plan of Care Dates Plan of Care Start Date 04/09/20 Plan of Care End Date 06/09/20 Electronically Signed by: Julia White PT 04/09/20 1800 Please Sign and Return: I have reviewed this Plan of Care and certify that the skilled therapy services above are required to meet the patient?s needs. Physician Signature Date Printed Name and Credentials Clinical Instructor Signature Printed Name and Credentials
--- NOTE | 2020-04-14 15:05 | PT.OTN ---
Current Diagnoses Lesion of sciatic nerve, left lower limb (04/14/20) Low back pain (04/14/20) Iliotibial band syndrome, left leg (04/14/20) Physical Therapy Treatment Note PT-OP-A Visit Information Start: 01/28/20 15:35 Freq: Status: Active Protocol: Document 04/14/20 13:54 MB (Rec: 04/14/20 14:58 MB [id number]) Out-Patient Physical Therapy Visit Information Visit Information Visit Type Treatment Note Visit Note Pt has cost share insurance and high OOP Visit Start Time 13:54 Visit Stop Time 14:54 Total Visit Minutes 60 Visit Number 2 PT-OP-B Current Condition Start: 01/28/20 15:35 Freq: Status: Active Protocol: Document 01/29/20 13:45 MB (Rec: 01/29/20 14:44 MB [id number]) Current Condition History of Current Condition Onset Date October 2019 Current Complaints Sacral and LB and left ischial pain and left hamstring numbness History of Current Condition Left sacral and left ischial tuberosity pain and numbness down left hamstring and tenderness down lateral left leg proximal part after foot went out from under her with a jerk and catch down hill. She has numbness down to her left toes. Pt likes to hike and con't to take her dogs out. She uses her hiking sticks when she walks. Pt has trouble walking down the steps. She has 7 steps in the house. Her pain gets as bad as 8/10. 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 One was bad as far as the epidural. She felt like her center of gravity changed after first child. She describes inability to do aerial cartwheels and dive off spring board afterwards. Prior Treatments and Tests Left elbow and shoulder injury and ongoing left upper shoulder/neck pain after fall 10 years ago Left thumb arthritis and pain. Pt has been getting dry needling from Dr. Fernández for upper traps, mid back, sacrum and left glutes. She got a steroid injection in left greater trochanter bursa and she is on her third round of Prednisone. She occ takes muscle relaxer. Pelvis x-ray negative Treatment Goals Patient/Caregiver Goals To decrease pain and increase mobility and strength PT-OP-C Subjective Start: 01/28/20 15:35 Freq: Status: Active Protocol: Document 04/14/20 13:54 MB (Rec: 04/14/20 14:58 MB [id number]) OP-PT Subjective Patient Comments Patient Comments Pt states that she got on the elliptical 12 minutes and it went okay. She does not have as much get up and go as she normally work. PT-OP-D Balance Start: 01/28/20 15:35 Freq: Status: Active Protocol: Document 01/29/20 13:45 MB (Rec: 01/29/20 15:10 MB [id number]) OP-PT Balance Assessment Sitting Balance Static Sitting Balance Ability Good Dynamic Sitting Balance Ability Good Sitting Balance Comments UE support, unweights left hip Standing Balance Static Standing Balance Ability Good Dynamic Standing Balance Ability Good Standing Balance Comments Off weights her left foot in standing Balance Tests Single Limb Standing Single Limb- Right 20 sec Single Limb- Left 20 sec Gandara Fall Scale Copyright Permission PT-OP-G Mobility & Gait Start: 01/28/20 15:35 Freq: Status: Active Protocol: Document 01/29/20 13:45 MB (Rec: 01/29/20 15:10 MB [id number]) OP Gait Assessment Gait Gait Assistance Required: Independent Distance (Feet) 100 Able to Maintain Weight Bearing Status Yes During Gait Gait Deviations General Gait Pattern Antalgic Comments Gait Comments Favors LLE with decreased step -length, left WB and push off PT-OP-J Posture/Palpation/Skin Start: 01/28/20 15:35 Freq: Status: Active Protocol: Document 01/29/20 13:45 MB (Rec: 01/29/20 15:10 MB [id number]) Posture Evaluation Comments Posture Comments Standing: decreased cervical lordosis, lower two cervical vertebra protruding, decreased thoracic kyphosis, increased lumbar lordosis, anterior tilt pelvis, left iliac crest 1/8 higher than the right, left lower ribs more protruded than the right, left SC joint is 1 /4 lower and more protruded than the right. She is right handed L SI stiff with right SB and mild discomfort with right SB. L SI joint stiff with compression in supine. Pt favors flexion and her hamstrings bend knees with reaching down to 2 above the floor. Her spinal extension is greatest at her thoracic and upper lumbar spine. No increased LE symptoms with repeated flexion and extension . PT-OP-K Range of Motion Start: 01/28/20 15:35 Freq: Status: Active Protocol: Document 01/29/20 13:45 MB (Rec: 01/29/20 15:10 MB [id number]) Lumbar Spine Range of Motion Lumbar Spine Active Comments L SI stiff with right SB and mild discomfort with right SB. L SI joint stiff with compression in supine. Pt favors flexion and her hamstrings bend knees with reaching down to 2 above the floor. Her spinal extension is greatest at her thoracic and upper lumbar spine. No increased LE symptoms with repeated flexion and extension . Hip Goniometric Range of Motion Hip ROM Limitations Comments B SLR no limitations and pt states that it feels good PT-OP-L Special Tests Start: 01/28/20 15:35 Freq: Status: Active Protocol: Document 01/29/20 13:45 MB (Rec: 01/29/20 15:10 MB [id number]) Special Tests Lumbar Spine Special Tests Slump Test Results R negative, L increased tightness to pain posterior left thigh to calf Hip Special Tests Scour Test Test Results Right negative, left provokes posterior hip pain CHE Test Results Tightness right greater than left hip, no real pain PT-OP-M Strength Start: 01/28/20 15:35 Freq: Status: Active Protocol: Document 01/29/20 13:45 MB (Rec: 01/29/20 15:10 MB [id number]) Hip Strength Hip Manual Muscle Testing Left Flexion (L2) 4 Good Extension (S1) 2+ Poor+ Abduction 3+ Fair+ Comments Supine hip flexion and abduction Prone hip extension Right Flexion (L2) 4 Good Extension (S1) 3 Fair Abduction 4 Good Reason Not Measured Behavior Comments Supine hip flexion and abduction Prone hip extension Knee Strength Knee Manual Muscle Testing Left Flexion (S2) 4 Good Extension (L3) 5 Normal Right Flexion (S2) 4 Good Extension (L3) 5 Normal Ankle/Foot Strength Ankle and Foot Manual Muscle Testing Left Dorsiflexion (L4) 5 Normal Right Dorsiflexion (L4) 5 Normal Toe Strength Toe Manual Muscle Testing Left Great Toe Extension 5 Normal Right Great Toe Extension 3+ Fair+ PT-OP-Q Treatments Start: 01/28/20 15:35 Freq: Status: Active Protocol: Document 04/14/20 13:54 MB (Rec: 04/14/20 14:58 MB [id number]) Manual Therapy Treatment Other Other Manual Treatments Pt agrees to Counterstrain to assess and treat fascial tension. PT assesses and treats fascial tension: lymphatic venous epidural posterior bias, treated cervical and thoracic B, right ALL cervical, ligamentum flavum B cervical to thoracic. Pt presents with fascial tension of the left vagus nerve and may benefit from assessment and treatment in future treatments. Pt responds well to treatment. PT-OP-T Assessment and Plan Start: 01/28/20 15:35 Freq: Status: Active Protocol: Document 04/14/20 13:54 MB (Rec: 04/14/20 14:58 MB [id number]) Physical Therapy Assessment Rehab Potential Rehabilitation Potential Good Evaluation Complexity Number of Personal Factors/Comorbidities 0 Number of Body Systems Impaired 1-2 Clinical Presentation at Evaluation Evolving Impairments Impairments Gait,Pain,Posture,ROM,Soft Tissue Mobility,Strength Other Impairments Unsure if her clinical presentation is stable or evolving: she still has pain since October and since receiving dry needling, cortisone injection, Prednisone and muscle relaxer Goals 5 Shelter Goal (LTG) Pt will report an 85% improvement in back and leg pain and leg paresthesias by . 04/09/2020: Pt reports she was feeling much better after PT started but then pain has flared up since stopping PT. She has constant 3/10 pain in her left arm, LB and left glute. Her pain is worse in the morning. LTG Duration 8 weeks 4 Shelter Goal (LTG) Pt will perform progressive HEP including pelvic realignment, pelvic floor, appropriate flexibility, strengthening and balance exercises with I to reduce pain and improve strength by . 04/09/2020: Pt has not been performing HEP consistently LTG Duration 8 weeks 3 Bag End Sewer Goal (LTG) Pt will ascend and descend 7 steps with 1 rail and reciprocal gait pattern to allow safe home mobility by . 04/09/2020: Pt still has trouble with reciprocal stair training LTG Duration 8 weeks 2 Shelter Goal (LTG) Pt will present with improved B hip flexion and abduction and knee flexion strength to 5 /5 to improve sit to stand ability and stair mobility by 06/09/2020. 04/09/2020: B hip flexion 4/5; left knee flexion 4/5 and reports 4/10 pain; B hip abduction 4/5 LTG Duration 8 weeks 1 Bag End Sewer Goal (LTG) Pt will present with improved Oswestry LBP score to reflect no more than 15% impairment to allow return to normal active lifestyle by 06/09/2020. 04/09/2020: Oswestry LBP scale score reflects 40% impairment LTG Duration 8 weeks Assessment Summary Assessment Pt presents with lymphatic venous and ligamentous fascial tension today. She tolerates Counterstrain well. Con't manual work and progress relaxation exercises to assist with pain, stress and autonomic responses related to pain. Physical Therapy Plan Frequency and Duration Frequency of Treatment 2x/Week Duration of Treatment 8 weeks Plan of Care Start Date 04/09/20 Plan of Care End Date 06/09/20 Therapeutic Interventions Therapeutic Interventions Aquatic Therapy,Balance Training,Gait Training,Home Exercise Program,Joint Mobilizations,Manual Therapy, Neuromuscular Re-education, Patient/Caregiver Education, Self-Care/Home Management, Sensory Integration,Soft Tissue Mobilization,Taping, Therapeutic Exercises Modalities Biofeedback,Cold Pack/Ice Massage,Electric Stimulation, Hot Packs,Ultrasound Other Therapeutic Interventions LLT Other Referrals/Consults Referrals/Consults Recommended May consider pelvic slot floorman work as well Next Visit Focus/Plan Next Note Type Treatment Note Next Visit Plan Consider diaphragmatic breathing and pelvic drop, further progression, quad rolling
--- NOTE | 2020-04-16 15:58 | PT.OTN ---
Current Diagnoses Lesion of sciatic nerve, left lower limb (04/16/20) Low back pain (04/16/20) Iliotibial band syndrome, left leg (04/16/20) Physical Therapy Treatment Note PT-OP-A Visit Information Start: 01/28/20 15:35 Freq: Status: Active Protocol: Document 04/16/20 15:13 MB (Rec: 04/16/20 15:52 MB [id number]) Out-Patient Physical Therapy Visit Information Visit Information Visit Type Treatment Note Visit Note Pt has cost share insurance and high OOP Visit Start Time 15:13 Visit Stop Time 15:57 Total Visit Minutes 45 Visit Number 3 PT-OP-B Current Condition Start: 01/28/20 15:35 Freq: Status: Active Protocol: Document 01/29/20 13:45 MB (Rec: 01/29/20 14:44 MB [id number]) Current Condition History of Current Condition Onset Date October 2019 Current Complaints Sacral and LB and left ischial pain and left hamstring numbness History of Current Condition Left sacral and left ischial tuberosity pain and numbness down left hamstring and tenderness down lateral left leg proximal part after foot went out from under her with a jerk and catch down hill. She has numbness down to her left toes. Pt likes to hike and con't to take her dogs out. She uses her hiking sticks when she walks. Pt has trouble walking down the steps. She has 7 steps in the house. Her pain gets as bad as 8/10. 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 One was bad as far as the epidural. She felt like her center of gravity changed after first child. She describes inability to do aerial cartwheels and dive off spring board afterwards. Prior Treatments and Tests Left elbow and shoulder injury and ongoing left upper shoulder/neck pain after fall 10 years ago Left thumb arthritis and pain. Pt has been getting dry needling from Dr. Fernández for upper traps, mid back, sacrum and left glutes. She got a steroid injection in left greater trochanter bursa and she is on her third round of Prednisone. She occ takes muscle relaxer. Pelvis x-ray negative Treatment Goals Patient/Caregiver Goals To decrease pain and increase mobility and strength PT-OP-C Subjective Start: 01/28/20 15:35 Freq: Status: Active Protocol: Document 04/16/20 15:13 MB (Rec: 04/16/20 15:52 MB [id number]) OP-PT Subjective Patient Comments Patient Comments Pt is having a little of a hard time with her son leaving and life transition. She would like to go through exercises today. PT-OP-D Balance Start: 01/28/20 15:35 Freq: Status: Active Protocol: Document 01/29/20 13:45 MB (Rec: 01/29/20 15:10 MB [id number]) OP-PT Balance Assessment Sitting Balance Static Sitting Balance Ability Good Dynamic Sitting Balance Ability Good Sitting Balance Comments UE support, unweights left hip Standing Balance Static Standing Balance Ability Good Dynamic Standing Balance Ability Good Standing Balance Comments Off weights her left foot in standing Balance Tests Single Limb Standing Single Limb- Right 20 sec Single Limb- Left 20 sec Gandara Fall Scale Copyright Permission PT-OP-G Mobility & Gait Start: 01/28/20 15:35 Freq: Status: Active Protocol: Document 01/29/20 13:45 MB (Rec: 01/29/20 15:10 MB [id number]) OP Gait Assessment Gait Gait Assistance Required: Independent Distance (Feet) 100 Able to Maintain Weight Bearing Status Yes During Gait Gait Deviations General Gait Pattern Antalgic Comments Gait Comments Favors LLE with decreased step -length, left WB and push off PT-OP-J Posture/Palpation/Skin Start: 01/28/20 15:35 Freq: Status: Active Protocol: Document 01/29/20 13:45 MB (Rec: 01/29/20 15:10 MB [id number]) Posture Evaluation Comments Posture Comments Standing: decreased cervical lordosis, lower two cervical vertebra protruding, decreased thoracic kyphosis, increased lumbar lordosis, anterior tilt pelvis, left iliac crest 1/8 higher than the right, left lower ribs more protruded than the right, left SC joint is 1 /4 lower and more protruded than the right. She is right handed L SI stiff with right SB and mild discomfort with right SB. L SI joint stiff with compression in supine. Pt favors flexion and her hamstrings bend knees with reaching down to 2 above the floor. Her spinal extension is greatest at her thoracic and upper lumbar spine. No increased LE symptoms with repeated flexion and extension . PT-OP-K Range of Motion Start: 01/28/20 15:35 Freq: Status: Active Protocol: Document 01/29/20 13:45 MB (Rec: 01/29/20 15:10 MB [id number]) Lumbar Spine Range of Motion Lumbar Spine Active Comments L SI stiff with right SB and mild discomfort with right SB. L SI joint stiff with compression in supine. Pt favors flexion and her hamstrings bend knees with reaching down to 2 above the floor. Her spinal extension is greatest at her thoracic and upper lumbar spine. No increased LE symptoms with repeated flexion and extension . Hip Goniometric Range of Motion Hip ROM Limitations Comments B SLR no limitations and pt states that it feels good PT-OP-L Special Tests Start: 01/28/20 15:35 Freq: Status: Active Protocol: Document 01/29/20 13:45 MB (Rec: 01/29/20 15:10 MB [id number]) Special Tests Lumbar Spine Special Tests Slump Test Results R negative, L increased tightness to pain posterior left thigh to calf Hip Special Tests Scour Test Test Results Right negative, left provokes posterior hip pain CHE Test Results Tightness right greater than left hip, no real pain PT-OP-M Strength Start: 01/28/20 15:35 Freq: Status: Active Protocol: Document 01/29/20 13:45 MB (Rec: 01/29/20 15:10 MB [id number]) Hip Strength Hip Manual Muscle Testing Left Flexion (L2) 4 Good Extension (S1) 2+ Poor+ Abduction 3+ Fair+ Comments Supine hip flexion and abduction Prone hip extension Right Flexion (L2) 4 Good Extension (S1) 3 Fair Abduction 4 Good Reason Not Measured Behavior Comments Supine hip flexion and abduction Prone hip extension Knee Strength Knee Manual Muscle Testing Left Flexion (S2) 4 Good Extension (L3) 5 Normal Right Flexion (S2) 4 Good Extension (L3) 5 Normal Ankle/Foot Strength Ankle and Foot Manual Muscle Testing Left Dorsiflexion (L4) 5 Normal Right Dorsiflexion (L4) 5 Normal Toe Strength Toe Manual Muscle Testing Left Great Toe Extension 5 Normal Right Great Toe Extension 3+ Fair+ PT-OP-Q Treatments Start: 01/28/20 15:35 Freq: Status: Active Protocol: Document 04/16/20 15:13 MB (Rec: 04/16/20 15:52 MB [id number]) Therapeutic Exercises Supine Exercises Progressive muscle relaxation Comments Performed each exercise, 10 sec hold and added to HEP Happy baby Comments 5 reps Pelvic drop Comments 5 reps, hold Diaphragmatic breathing Comments 5 reps and cues for slowly Pelvic realignment exercises Comments 5 reps, 3 sec hold PT-OP-T Assessment and Plan Start: 01/28/20 15:35 Freq: Status: Active Protocol: Document 04/16/20 15:13 MB (Rec: 04/16/20 15:52 MB [id number]) Physical Therapy Assessment Rehab Potential Rehabilitation Potential Good Evaluation Complexity Number of Personal Factors/Comorbidities 0 Number of Body Systems Impaired 1-2 Clinical Presentation at Evaluation Evolving Impairments Impairments Gait,Pain,Posture,ROM,Soft Tissue Mobility,Strength Other Impairments Unsure if her clinical presentation is stable or evolving: she still has pain since October and since receiving dry needling, cortisone injection, Prednisone and muscle relaxer Goals 5 Nursing Home Goal (LTG) Pt will report an 85% improvement in back and leg pain and leg paresthesias by . 04/09/2020: Pt reports she was feeling much better after PT started but then pain has flared up since stopping PT. She has constant 3/10 pain in her left arm, LB and left glute. Her pain is worse in the morning. LTG Duration 8 weeks 4 Nursing Home Goal (LTG) Pt will perform progressive HEP including pelvic realignment, pelvic floor, appropriate flexibility, strengthening and balance exercises with I to reduce pain and improve strength by . 04/09/2020: Pt has not been performing HEP consistently LTG Duration 8 weeks 3 Floor Director Goal (LTG) Pt will ascend and descend 7 steps with 1 rail and reciprocal gait pattern to allow safe home mobility by . 04/09/2020: Pt still has trouble with reciprocal stair training LTG Duration 8 weeks 2 Floor Director Goal (LTG) Pt will present with improved B hip flexion and abduction and knee flexion strength to 5 /5 to improve sit to stand ability and stair mobility by 06/09/2020. 04/09/2020: B hip flexion 4/5; left knee flexion 4/5 and reports 4/10 pain; B hip abduction 4/5 LTG Duration 8 weeks 1 Nursing Home Goal (LTG) Pt will present with improved Oswestry LBP score to reflect no more than 15% impairment to allow return to normal active lifestyle by 06/09/2020. 04/09/2020: Oswestry LBP scale score reflects 40% impairment LTG Duration 8 weeks Assessment Summary Assessment Initiated relaxation exercises today and reviewed pelvic realignment exercises--all exercises to help release tension and increase parasympathetic response. Physical Therapy Plan Frequency and Duration Frequency of Treatment 2x/Week Duration of Treatment 8 weeks Plan of Care Start Date 04/09/20 Plan of Care End Date 06/09/20 Therapeutic Interventions Therapeutic Interventions Aquatic Therapy,Balance Training,Gait Training,Home Exercise Program,Joint Mobilizations,Manual Therapy, Neuromuscular Re-education, Patient/Caregiver Education, Self-Care/Home Management, Sensory Integration,Soft Tissue Mobilization,Taping, Therapeutic Exercises Modalities Biofeedback,Cold Pack/Ice Massage,Electric Stimulation, Hot Packs,Ultrasound Other Therapeutic Interventions LLT Other Referrals/Consults Referrals/Consults Recommended May consider pelvic maternity floor supervisor work as well Next Visit Focus/Plan Next Note Type Treatment Note Next Visit Plan Ther-ex further progression, quad rolling
--- NOTE | 2020-04-23 16:01 | PT.OTN ---
Current Diagnoses Lesion of sciatic nerve, left lower limb (04/23/20) Low back pain (04/23/20) Iliotibial band syndrome, left leg (04/23/20) Physical Therapy Treatment Note PT-OP-A Visit Information Start: 01/28/20 15:35 Freq: Status: Active Protocol: Document 04/23/20 15:17 MB (Rec: 04/23/20 16:01 MB [id number]) Out-Patient Physical Therapy Visit Information Visit Information Visit Type Treatment Note Visit Note Pt has cost share insurance and high OOP Visit Start Time 15:17 Visit Stop Time 16:00 Total Visit Minutes 43 Visit Number 4 PT-OP-B Current Condition Start: 01/28/20 15:35 Freq: Status: Active Protocol: Document 01/29/20 13:45 MB (Rec: 01/29/20 14:44 MB [id number]) Current Condition History of Current Condition Onset Date October 2019 Current Complaints Sacral and LB and left ischial pain and left hamstring numbness History of Current Condition Left sacral and left ischial tuberosity pain and numbness down left hamstring and tenderness down lateral left leg proximal part after foot went out from under her with a jerk and catch down hill. She has numbness down to her left toes. Pt likes to hike and con't to take her dogs out. She uses her hiking sticks when she walks. Pt has trouble walking down the steps. She has 7 steps in the house. Her pain gets as bad as 8/10. 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 One was bad as far as the epidural. She felt like her center of gravity changed after first child. She describes inability to do aerial cartwheels and dive off spring board afterwards. Prior Treatments and Tests Left elbow and shoulder injury and ongoing left upper shoulder/neck pain after fall 10 years ago Left thumb arthritis and pain. Pt has been getting dry needling from Dr. Fernández for upper traps, mid back, sacrum and left glutes. She got a steroid injection in left greater trochanter bursa and she is on her third round of Prednisone. She occ takes muscle relaxer. Pelvis x-ray negative Treatment Goals Patient/Caregiver Goals To decrease pain and increase mobility and strength PT-OP-C Subjective Start: 01/28/20 15:35 Freq: Status: Active Protocol: Document 04/23/20 15:17 MB (Rec: 04/23/20 16:01 MB [id number]) OP-PT Subjective Patient Comments Patient Comments Pt is performing her exercises . Things feel good except the ball squeeze might not be helpful. PT-OP-D Balance Start: 01/28/20 15:35 Freq: Status: Active Protocol: Document 01/29/20 13:45 MB (Rec: 01/29/20 15:10 MB [id number]) OP-PT Balance Assessment Sitting Balance Static Sitting Balance Ability Good Dynamic Sitting Balance Ability Good Sitting Balance Comments UE support, unweights left hip Standing Balance Static Standing Balance Ability Good Dynamic Standing Balance Ability Good Standing Balance Comments Off weights her left foot in standing Balance Tests Single Limb Standing Single Limb- Right 20 sec Single Limb- Left 20 sec Gandara Fall Scale Copyright Permission PT-OP-G Mobility & Gait Start: 01/28/20 15:35 Freq: Status: Active Protocol: Document 01/29/20 13:45 MB (Rec: 01/29/20 15:10 MB [id number]) OP Gait Assessment Gait Gait Assistance Required: Independent Distance (Feet) 100 Able to Maintain Weight Bearing Status Yes During Gait Gait Deviations General Gait Pattern Antalgic Comments Gait Comments Favors LLE with decreased step -length, left WB and push off PT-OP-J Posture/Palpation/Skin Start: 01/28/20 15:35 Freq: Status: Active Protocol: Document 01/29/20 13:45 MB (Rec: 01/29/20 15:10 MB [id number]) Posture Evaluation Comments Posture Comments Standing: decreased cervical lordosis, lower two cervical vertebra protruding, decreased thoracic kyphosis, increased lumbar lordosis, anterior tilt pelvis, left iliac crest 1/8 higher than the right, left lower ribs more protruded than the right, left SC joint is 1 /4 lower and more protruded than the right. She is right handed L SI stiff with right SB and mild discomfort with right SB. L SI joint stiff with compression in supine. Pt favors flexion and her hamstrings bend knees with reaching down to 2 above the floor. Her spinal extension is greatest at her thoracic and upper lumbar spine. No increased LE symptoms with repeated flexion and extension . PT-OP-K Range of Motion Start: 01/28/20 15:35 Freq: Status: Active Protocol: Document 01/29/20 13:45 MB (Rec: 01/29/20 15:10 MB [id number]) Lumbar Spine Range of Motion Lumbar Spine Active Comments L SI stiff with right SB and mild discomfort with right SB. L SI joint stiff with compression in supine. Pt favors flexion and her hamstrings bend knees with reaching down to 2 above the floor. Her spinal extension is greatest at her thoracic and upper lumbar spine. No increased LE symptoms with repeated flexion and extension . Hip Goniometric Range of Motion Hip ROM Limitations Comments B SLR no limitations and pt states that it feels good PT-OP-L Special Tests Start: 01/28/20 15:35 Freq: Status: Active Protocol: Document 01/29/20 13:45 MB (Rec: 01/29/20 15:10 MB [id number]) Special Tests Lumbar Spine Special Tests Slump Test Results R negative, L increased tightness to pain posterior left thigh to calf Hip Special Tests Scour Test Test Results Right negative, left provokes posterior hip pain CHE Test Results Tightness right greater than left hip, no real pain PT-OP-M Strength Start: 01/28/20 15:35 Freq: Status: Active Protocol: Document 01/29/20 13:45 MB (Rec: 01/29/20 15:10 MB [id number]) Hip Strength Hip Manual Muscle Testing Left Flexion (L2) 4 Good Extension (S1) 2+ Poor+ Abduction 3+ Fair+ Comments Supine hip flexion and abduction Prone hip extension Right Flexion (L2) 4 Good Extension (S1) 3 Fair Abduction 4 Good Reason Not Measured Behavior Comments Supine hip flexion and abduction Prone hip extension Knee Strength Knee Manual Muscle Testing Left Flexion (S2) 4 Good Extension (L3) 5 Normal Right Flexion (S2) 4 Good Extension (L3) 5 Normal Ankle/Foot Strength Ankle and Foot Manual Muscle Testing Left Dorsiflexion (L4) 5 Normal Right Dorsiflexion (L4) 5 Normal Toe Strength Toe Manual Muscle Testing Left Great Toe Extension 5 Normal Right Great Toe Extension 3+ Fair+ PT-OP-Q Treatments Start: 01/28/20 15:35 Freq: Status: Active Protocol: Document 04/23/20 15:17 MB (Rec: 04/23/20 16:01 MB [id number]) Therapeutic Exercises Supine Exercises Racquet ball release hip rotators Comments Pt supine, hip rotator release Standing Exercises Racquet ball self-massage Comments MWM deltoids, intrascapular muscles, glutes Manual Therapy Treatment Other Other Manual Treatments Hook lying STM B hip flexors with PT providing trigger point pressure and pt performing active HS. Positional release right quads PT-OP-T Assessment and Plan Start: 01/28/20 15:35 Freq: Status: Active Protocol: Document 04/23/20 15:17 MB (Rec: 04/23/20 16:01 MB [id number]) Physical Therapy Assessment Rehab Potential Rehabilitation Potential Good Evaluation Complexity Number of Personal Factors/Comorbidities 0 Number of Body Systems Impaired 1-2 Clinical Presentation at Evaluation Evolving Impairments Impairments Gait,Pain,Posture,ROM,Soft Tissue Mobility,Strength Other Impairments Unsure if her clinical presentation is stable or evolving: she still has pain since October and since receiving dry needling, cortisone injection, Prednisone and muscle relaxer Goals 5 Paper Baler Goal (LTG) Pt will report an 85% improvement in back and leg pain and leg paresthesias by . 04/09/2020: Pt reports she was feeling much better after PT started but then pain has flared up since stopping PT. She has constant 3/10 pain in her left arm, LB and left glute. Her pain is worse in the morning. LTG Duration 8 weeks 4 Paper Baler Goal (LTG) Pt will perform progressive HEP including pelvic realignment, pelvic floor, appropriate flexibility, strengthening and balance exercises with I to reduce pain and improve strength by . 04/09/2020: Pt has not been performing HEP consistently LTG Duration 8 weeks 3 Snf Goal (LTG) Pt will ascend and descend 7 steps with 1 rail and reciprocal gait pattern to allow safe home mobility by . 04/09/2020: Pt still has trouble with reciprocal stair training LTG Duration 8 weeks 2 Snf Goal (LTG) Pt will present with improved B hip flexion and abduction and knee flexion strength to 5 /5 to improve sit to stand ability and stair mobility by 06/09/2020. 04/09/2020: B hip flexion 4/5; left knee flexion 4/5 and reports 4/10 pain; B hip abduction 4/5 LTG Duration 8 weeks 1 Paper Baler Goal (LTG) Pt will present with improved Oswestry LBP score to reflect no more than 15% impairment to allow return to normal active lifestyle by 06/09/2020. 04/09/2020: Oswestry LBP scale score reflects 40% impairment LTG Duration 8 weeks Assessment Summary Assessment Pt presents with increased tension right hip flexor and quad. Con't manual work and therapeutic exercises. Physical Therapy Plan Frequency and Duration Frequency of Treatment 2x/Week Duration of Treatment 8 weeks Plan of Care Start Date 04/09/20 Plan of Care End Date 06/09/20 Therapeutic Interventions Therapeutic Interventions Aquatic Therapy,Balance Training,Gait Training,Home Exercise Program,Joint Mobilizations,Manual Therapy, Neuromuscular Re-education, Patient/Caregiver Education, Self-Care/Home Management, Sensory Integration,Soft Tissue Mobilization,Taping, Therapeutic Exercises Modalities Biofeedback,Cold Pack/Ice Massage,Electric Stimulation, Hot Packs,Ultrasound Other Therapeutic Interventions LLT Other Referrals/Consults Referrals/Consults Recommended May consider pelvic floor covering printer work as well Next Visit Focus/Plan Next Note Type Treatment Note Next Visit Plan Ther-ex further progression, quad rolling
--- NOTE | 2020-04-30 15:16 | PT.OTN ---
Current Diagnoses Lesion of sciatic nerve, left lower limb (04/30/20) Low back pain (04/30/20) Iliotibial band syndrome, left leg (04/30/20) Physical Therapy Treatment Note PT-OP-A Visit Information Start: 01/28/20 15:35 Freq: Status: Active Protocol: Document 04/30/20 14:31 MB (Rec: 04/30/20 15:16 MB [id number]) Out-Patient Physical Therapy Visit Information Visit Information Visit Type Treatment Note Visit Note Pt has cost share insurance and high OOP Visit Start Time 14:31 Visit Stop Time 15:15 Total Visit Minutes 44 Visit Number 5 PT-OP-B Current Condition Start: 01/28/20 15:35 Freq: Status: Active Protocol: Document 01/29/20 13:45 MB (Rec: 01/29/20 14:44 MB [id number]) Current Condition History of Current Condition Onset Date October 2019 Current Complaints Sacral and LB and left ischial pain and left hamstring numbness History of Current Condition Left sacral and left ischial tuberosity pain and numbness down left hamstring and tenderness down lateral left leg proximal part after foot went out from under her with a jerk and catch down hill. She has numbness down to her left toes. Pt likes to hike and con't to take her dogs out. She uses her hiking sticks when she walks. Pt has trouble walking down the steps. She has 7 steps in the house. Her pain gets as bad as 8/10. 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 One was bad as far as the epidural. She felt like her center of gravity changed after first child. She describes inability to do aerial cartwheels and dive off spring board afterwards. Prior Treatments and Tests Left elbow and shoulder injury and ongoing left upper shoulder/neck pain after fall 10 years ago Left thumb arthritis and pain. Pt has been getting dry needling from Dr. Fernández for upper traps, mid back, sacrum and left glutes. She got a steroid injection in left greater trochanter bursa and she is on her third round of Prednisone. She occ takes muscle relaxer. Pelvis x-ray negative Treatment Goals Patient/Caregiver Goals To decrease pain and increase mobility and strength PT-OP-C Subjective Start: 01/28/20 15:35 Freq: Status: Active Protocol: Document 04/30/20 14:31 MB (Rec: 04/30/20 15:16 MB [id number]) OP-PT Subjective Patient Comments Patient Comments Pt states that she was writhing in pain last night. She was in the chair that might be problematic for posture--she sits a long time with legs up with computer, etc. She also took an hour drive down and back yesterday. PT-OP-D Balance Start: 01/28/20 15:35 Freq: Status: Active Protocol: Document 01/29/20 13:45 MB (Rec: 01/29/20 15:10 MB [id number]) OP-PT Balance Assessment Sitting Balance Static Sitting Balance Ability Good Dynamic Sitting Balance Ability Good Sitting Balance Comments UE support, unweights left hip Standing Balance Static Standing Balance Ability Good Dynamic Standing Balance Ability Good Standing Balance Comments Off weights her left foot in standing Balance Tests Single Limb Standing Single Limb- Right 20 sec Single Limb- Left 20 sec Gandara Fall Scale Copyright Permission PT-OP-G Mobility & Gait Start: 01/28/20 15:35 Freq: Status: Active Protocol: Document 01/29/20 13:45 MB (Rec: 01/29/20 15:10 MB [id number]) OP Gait Assessment Gait Gait Assistance Required: Independent Distance (Feet) 100 Able to Maintain Weight Bearing Status Yes During Gait Gait Deviations General Gait Pattern Antalgic Comments Gait Comments Favors LLE with decreased step -length, left WB and push off PT-OP-J Posture/Palpation/Skin Start: 01/28/20 15:35 Freq: Status: Active Protocol: Document 01/29/20 13:45 MB (Rec: 01/29/20 15:10 MB [id number]) Posture Evaluation Comments Posture Comments Standing: decreased cervical lordosis, lower two cervical vertebra protruding, decreased thoracic kyphosis, increased lumbar lordosis, anterior tilt pelvis, left iliac crest 1/8 higher than the right, left lower ribs more protruded than the right, left SC joint is 1 /4 lower and more protruded than the right. She is right handed L SI stiff with right SB and mild discomfort with right SB. L SI joint stiff with compression in supine. Pt favors flexion and her hamstrings bend knees with reaching down to 2 above the floor. Her spinal extension is greatest at her thoracic and upper lumbar spine. No increased LE symptoms with repeated flexion and extension . PT-OP-K Range of Motion Start: 01/28/20 15:35 Freq: Status: Active Protocol: Document 01/29/20 13:45 MB (Rec: 01/29/20 15:10 MB [id number]) Lumbar Spine Range of Motion Lumbar Spine Active Comments L SI stiff with right SB and mild discomfort with right SB. L SI joint stiff with compression in supine. Pt favors flexion and her hamstrings bend knees with reaching down to 2 above the floor. Her spinal extension is greatest at her thoracic and upper lumbar spine. No increased LE symptoms with repeated flexion and extension . Hip Goniometric Range of Motion Hip ROM Limitations Comments B SLR no limitations and pt states that it feels good PT-OP-L Special Tests Start: 01/28/20 15:35 Freq: Status: Active Protocol: Document 01/29/20 13:45 MB (Rec: 01/29/20 15:10 MB [id number]) Special Tests Lumbar Spine Special Tests Slump Test Results R negative, L increased tightness to pain posterior left thigh to calf Hip Special Tests Scour Test Test Results Right negative, left provokes posterior hip pain CHE Test Results Tightness right greater than left hip, no real pain PT-OP-M Strength Start: 01/28/20 15:35 Freq: Status: Active Protocol: Document 01/29/20 13:45 MB (Rec: 01/29/20 15:10 MB [id number]) Hip Strength Hip Manual Muscle Testing Left Flexion (L2) 4 Good Extension (S1) 2+ Poor+ Abduction 3+ Fair+ Comments Supine hip flexion and abduction Prone hip extension Right Flexion (L2) 4 Good Extension (S1) 3 Fair Abduction 4 Good Reason Not Measured Behavior Comments Supine hip flexion and abduction Prone hip extension Knee Strength Knee Manual Muscle Testing Left Flexion (S2) 4 Good Extension (L3) 5 Normal Right Flexion (S2) 4 Good Extension (L3) 5 Normal Ankle/Foot Strength Ankle and Foot Manual Muscle Testing Left Dorsiflexion (L4) 5 Normal Right Dorsiflexion (L4) 5 Normal Toe Strength Toe Manual Muscle Testing Left Great Toe Extension 5 Normal Right Great Toe Extension 3+ Fair+ PT-OP-Q Treatments Start: 01/28/20 15:35 Freq: Status: Active Protocol: Document 04/30/20 14:31 MB (Rec: 04/30/20 15:16 MB [id number]) Manual Therapy Treatment Other Other Manual Treatments Prone: Positional release sacrum and right hip rotators, use of towel roll to gently press periteneum upwards for positional release of pelvic floor, B adductors positional release, positional release left medial hamstring, B SCM and suboccipital release. Self-Care/Home Management Treatment Education Other Education Proper sitting position with feet on floor, hips higher than knees and pelvic rocking to help prevent sacral tension PT-OP-T Assessment and Plan Start: 01/28/20 15:35 Freq: Status: Active Protocol: Document 04/30/20 14:31 MB (Rec: 04/30/20 15:16 MB [id number]) Physical Therapy Assessment Rehab Potential Rehabilitation Potential Good Evaluation Complexity Number of Personal Factors/Comorbidities 0 Number of Body Systems Impaired 1-2 Clinical Presentation at Evaluation Evolving Impairments Impairments Gait,Pain,Posture,ROM,Soft Tissue Mobility,Strength Other Impairments Unsure if her clinical presentation is stable or evolving: she still has pain since October and since receiving dry needling, cortisone injection, Prednisone and muscle relaxer Goals 5 Correction Goal (LTG) Pt will report an 85% improvement in back and leg pain and leg paresthesias by . 04/09/2020: Pt reports she was feeling much better after PT started but then pain has flared up since stopping PT. She has constant 3/10 pain in her left arm, LB and left glute. Her pain is worse in the morning. LTG Duration 8 weeks 4 Correction Goal (LTG) Pt will perform progressive HEP including pelvic realignment, pelvic floor, appropriate flexibility, strengthening and balance exercises with I to reduce pain and improve strength by . 04/09/2020: Pt has not been performing HEP consistently LTG Duration 8 weeks 3 Corn Crop Supervisor Goal (LTG) Pt will ascend and descend 7 steps with 1 rail and reciprocal gait pattern to allow safe home mobility by . 04/09/2020: Pt still has trouble with reciprocal stair training LTG Duration 8 weeks 2 Correction Goal (LTG) Pt will present with improved B hip flexion and abduction and knee flexion strength to 5 /5 to improve sit to stand ability and stair mobility by 06/09/2020. 04/09/2020: B hip flexion 4/5; left knee flexion 4/5 and reports 4/10 pain; B hip abduction 4/5 LTG Duration 8 weeks 1 Corn Crop Supervisor Goal (LTG) Pt will present with improved Oswestry LBP score to reflect no more than 15% impairment to allow return to normal active lifestyle by 06/09/2020. 04/09/2020: Oswestry LBP scale score reflects 40% impairment LTG Duration 8 weeks Assessment Summary Assessment Pt presents with sacral stiffness and responds well to positional release today. Con 't pelvic and low back pain pelvic floor sequence. Physical Therapy Plan Frequency and Duration Frequency of Treatment 2x/Week Duration of Treatment 8 weeks Plan of Care Start Date 04/09/20 Plan of Care End Date 06/09/20 Therapeutic Interventions Therapeutic Interventions Aquatic Therapy,Balance Training,Gait Training,Home Exercise Program,Joint Mobilizations,Manual Therapy, Neuromuscular Re-education, Patient/Caregiver Education, Self-Care/Home Management, Sensory Integration,Soft Tissue Mobilization,Taping, Therapeutic Exercises Modalities Biofeedback,Cold Pack/Ice Massage,Electric Stimulation, Hot Packs,Ultrasound Other Therapeutic Interventions LLT Other Referrals/Consults Referrals/Consults Recommended May consider pelvic slot floor attendant work as well Next Visit Focus/Plan Next Note Type Treatment Note Next Visit Plan Ther-ex further progression, quad rolling
--- NOTE | 2020-05-07 17:36 | PT.OTN ---
Current Diagnoses Lesion of sciatic nerve, left lower limb (05/07/20) Low back pain (05/07/20) Iliotibial band syndrome, left leg (05/07/20) Physical Therapy Treatment Note PT-OP-A Visit Information Start: 01/28/20 15:35 Freq: Status: Active Protocol: Document 05/07/20 16:45 MB (Rec: 05/07/20 17:35 MB [id number]) Out-Patient Physical Therapy Visit Information Visit Information Visit Type Treatment Note Visit Note Pt has cost share insurance and high OOP Visit Start Time 16:45 Visit Stop Time 17:30 Total Visit Minutes 45 Visit Number 6 PT-OP-B Current Condition Start: 01/28/20 15:35 Freq: Status: Active Protocol: Document 01/29/20 13:45 MB (Rec: 01/29/20 14:44 MB [id number]) Current Condition History of Current Condition Onset Date October 2019 Current Complaints Sacral and LB and left ischial pain and left hamstring numbness History of Current Condition Left sacral and left ischial tuberosity pain and numbness down left hamstring and tenderness down lateral left leg proximal part after foot went out from under her with a jerk and catch down hill. She has numbness down to her left toes. Pt likes to hike and con't to take her dogs out. She uses her hiking sticks when she walks. Pt has trouble walking down the steps. She has 7 steps in the house. Her pain gets as bad as 8/10. 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 One was bad as far as the epidural. She felt like her center of gravity changed after first child. She describes inability to do aerial cartwheels and dive off spring board afterwards. Prior Treatments and Tests Left elbow and shoulder injury and ongoing left upper shoulder/neck pain after fall 10 years ago Left thumb arthritis and pain. Pt has been getting dry needling from Dr. Fernández for upper traps, mid back, sacrum and left glutes. She got a steroid injection in left greater trochanter bursa and she is on her third round of Prednisone. She occ takes muscle relaxer. Pelvis x-ray negative Treatment Goals Patient/Caregiver Goals To decrease pain and increase mobility and strength PT-OP-C Subjective Start: 01/28/20 15:35 Freq: Status: Active Protocol: Document 05/07/20 16:45 MB (Rec: 05/07/20 17:35 MB [id number]) OP-PT Subjective Patient Comments Patient Comments Pt states that she felt a lot better and that the difference was Counterstrain. She has been riding the stationary bike and ellipitical in the mornings. PT-OP-D Balance Start: 01/28/20 15:35 Freq: Status: Active Protocol: Document 01/29/20 13:45 MB (Rec: 01/29/20 15:10 MB [id number]) OP-PT Balance Assessment Sitting Balance Static Sitting Balance Ability Good Dynamic Sitting Balance Ability Good Sitting Balance Comments UE support, unweights left hip Standing Balance Static Standing Balance Ability Good Dynamic Standing Balance Ability Good Standing Balance Comments Off weights her left foot in standing Balance Tests Single Limb Standing Single Limb- Right 20 sec Single Limb- Left 20 sec Gandara Fall Scale Copyright Permission PT-OP-G Mobility & Gait Start: 01/28/20 15:35 Freq: Status: Active Protocol: Document 01/29/20 13:45 MB (Rec: 01/29/20 15:10 MB [id number]) OP Gait Assessment Gait Gait Assistance Required: Independent Distance (Feet) 100 Able to Maintain Weight Bearing Status Yes During Gait Gait Deviations General Gait Pattern Antalgic Comments Gait Comments Favors LLE with decreased step -length, left WB and push off PT-OP-J Posture/Palpation/Skin Start: 01/28/20 15:35 Freq: Status: Active Protocol: Document 01/29/20 13:45 MB (Rec: 01/29/20 15:10 MB [id number]) Posture Evaluation Comments Posture Comments Standing: decreased cervical lordosis, lower two cervical vertebra protruding, decreased thoracic kyphosis, increased lumbar lordosis, anterior tilt pelvis, left iliac crest 1/8 higher than the right, left lower ribs more protruded than the right, left SC joint is 1 /4 lower and more protruded than the right. She is right handed L SI stiff with right SB and mild discomfort with right SB. L SI joint stiff with compression in supine. Pt favors flexion and her hamstrings bend knees with reaching down to 2 above the floor. Her spinal extension is greatest at her thoracic and upper lumbar spine. No increased LE symptoms with repeated flexion and extension . PT-OP-K Range of Motion Start: 01/28/20 15:35 Freq: Status: Active Protocol: Document 01/29/20 13:45 MB (Rec: 01/29/20 15:10 MB [id number]) Lumbar Spine Range of Motion Lumbar Spine Active Comments L SI stiff with right SB and mild discomfort with right SB. L SI joint stiff with compression in supine. Pt favors flexion and her hamstrings bend knees with reaching down to 2 above the floor. Her spinal extension is greatest at her thoracic and upper lumbar spine. No increased LE symptoms with repeated flexion and extension . Hip Goniometric Range of Motion Hip ROM Limitations Comments B SLR no limitations and pt states that it feels good PT-OP-L Special Tests Start: 01/28/20 15:35 Freq: Status: Active Protocol: Document 01/29/20 13:45 MB (Rec: 01/29/20 15:10 MB [id number]) Special Tests Lumbar Spine Special Tests Slump Test Results R negative, L increased tightness to pain posterior left thigh to calf Hip Special Tests Scour Test Test Results Right negative, left provokes posterior hip pain CHE Test Results Tightness right greater than left hip, no real pain PT-OP-M Strength Start: 01/28/20 15:35 Freq: Status: Active Protocol: Document 01/29/20 13:45 MB (Rec: 01/29/20 15:10 MB [id number]) Hip Strength Hip Manual Muscle Testing Left Flexion (L2) 4 Good Extension (S1) 2+ Poor+ Abduction 3+ Fair+ Comments Supine hip flexion and abduction Prone hip extension Right Flexion (L2) 4 Good Extension (S1) 3 Fair Abduction 4 Good Reason Not Measured Behavior Comments Supine hip flexion and abduction Prone hip extension Knee Strength Knee Manual Muscle Testing Left Flexion (S2) 4 Good Extension (L3) 5 Normal Right Flexion (S2) 4 Good Extension (L3) 5 Normal Ankle/Foot Strength Ankle and Foot Manual Muscle Testing Left Dorsiflexion (L4) 5 Normal Right Dorsiflexion (L4) 5 Normal Toe Strength Toe Manual Muscle Testing Left Great Toe Extension 5 Normal Right Great Toe Extension 3+ Fair+ PT-OP-Q Treatments Start: 01/28/20 15:35 Freq: Status: Active Protocol: Document 05/07/20 16:45 MB (Rec: 05/07/20 17:35 MB [id number]) Manual Therapy Treatment Other Other Manual Treatments Pt agrees to Counterstrain to assess and treat fascial tension. PT treats B stacks AINTs (thoracic), somatic LEs pelvic, hip and foot, greater on the left. PT-OP-T Assessment and Plan Start: 01/28/20 15:35 Freq: Status: Active Protocol: Document 05/07/20 16:45 MB (Rec: 05/07/20 17:35 MB [id number]) Physical Therapy Assessment Rehab Potential Rehabilitation Potential Good Evaluation Complexity Number of Personal Factors/Comorbidities 0 Number of Body Systems Impaired 1-2 Clinical Presentation at Evaluation Evolving Impairments Impairments Gait,Pain,Posture,ROM,Soft Tissue Mobility,Strength Other Impairments Unsure if her clinical presentation is stable or evolving: she still has pain since October and since receiving dry needling, cortisone injection, Prednisone and muscle relaxer Goals 5 Apiculturist Goal (LTG) Pt will report an 85% improvement in back and leg pain and leg paresthesias by . 04/09/2020: Pt reports she was feeling much better after PT started but then pain has flared up since stopping PT. She has constant 3/10 pain in her left arm, LB and left glute. Her pain is worse in the morning. LTG Duration 8 weeks 4 Apiculturist Goal (LTG) Pt will perform progressive HEP including pelvic realignment, pelvic floor, appropriate flexibility, strengthening and balance exercises with I to reduce pain and improve strength by . 04/09/2020: Pt has not been performing HEP consistently LTG Duration 8 weeks 3 Senior Living Goal (LTG) Pt will ascend and descend 7 steps with 1 rail and reciprocal gait pattern to allow safe home mobility by . 04/09/2020: Pt still has trouble with reciprocal stair training LTG Duration 8 weeks 2 Apiculturist Goal (LTG) Pt will present with improved B hip flexion and abduction and knee flexion strength to 5 /5 to improve sit to stand ability and stair mobility by 06/09/2020. 04/09/2020: B hip flexion 4/5; left knee flexion 4/5 and reports 4/10 pain; B hip abduction 4/5 LTG Duration 8 weeks 1 Senior Living Goal (LTG) Pt will present with improved Oswestry LBP score to reflect no more than 15% impairment to allow return to normal active lifestyle by 06/09/2020. 04/09/2020: Oswestry LBP scale score reflects 40% impairment LTG Duration 8 weeks Assessment Summary Assessment Counterstrain today to treat sacral and neural fascial tension. Pt presents with improved pain and mobility afterwards. Con't pelvic and low back pain pelvic floor sequence. Physical Therapy Plan Frequency and Duration Frequency of Treatment 2x/Week Duration of Treatment 8 weeks Plan of Care Start Date 04/09/20 Plan of Care End Date 06/09/20 Therapeutic Interventions Therapeutic Interventions Aquatic Therapy,Balance Training,Gait Training,Home Exercise Program,Joint Mobilizations,Manual Therapy, Neuromuscular Re-education, Patient/Caregiver Education, Self-Care/Home Management, Sensory Integration,Soft Tissue Mobilization,Taping, Therapeutic Exercises Modalities Biofeedback,Cold Pack/Ice Massage,Electric Stimulation, Hot Packs,Ultrasound Other Therapeutic Interventions LLT Other Referrals/Consults Referrals/Consults Recommended May consider pelvic rubber tile floor layer work as well Next Visit Focus/Plan Next Note Type Treatment Note Next Visit Plan Ther-ex further progression, quad rolling
--- NOTE | 2020-05-14 15:15 | PT.OTN ---
Current Diagnoses Lesion of sciatic nerve, left lower limb (05/14/20) Low back pain (05/14/20) Iliotibial band syndrome, left leg (05/14/20) Physical Therapy Treatment Note PT-OP-A Visit Information Start: 01/28/20 15:35 Freq: Status: Active Protocol: Document 05/14/20 14:31 MB (Rec: 05/14/20 15:15 MB [id number]) Out-Patient Physical Therapy Visit Information Visit Information Visit Type Treatment Note Visit Note Pt has cost share insurance and high OOP Visit Start Time 14:31 Visit Stop Time 15:15 Total Visit Minutes 44 Visit Number 7 PT-OP-B Current Condition Start: 01/28/20 15:35 Freq: Status: Active Protocol: Document 01/29/20 13:45 MB (Rec: 01/29/20 14:44 MB [id number]) Current Condition History of Current Condition Onset Date October 2019 Current Complaints Sacral and LB and left ischial pain and left hamstring numbness History of Current Condition Left sacral and left ischial tuberosity pain and numbness down left hamstring and tenderness down lateral left leg proximal part after foot went out from under her with a jerk and catch down hill. She has numbness down to her left toes. Pt likes to hike and con't to take her dogs out. She uses her hiking sticks when she walks. Pt has trouble walking down the steps. She has 7 steps in the house. Her pain gets as bad as 8/10. 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 One was bad as far as the epidural. She felt like her center of gravity changed after first child. She describes inability to do aerial cartwheels and dive off spring board afterwards. Prior Treatments and Tests Left elbow and shoulder injury and ongoing left upper shoulder/neck pain after fall 10 years ago Left thumb arthritis and pain. Pt has been getting dry needling from Dr. Fernández for upper traps, mid back, sacrum and left glutes. She got a steroid injection in left greater trochanter bursa and she is on her third round of Prednisone. She occ takes muscle relaxer. Pelvis x-ray negative Treatment Goals Patient/Caregiver Goals To decrease pain and increase mobility and strength PT-OP-C Subjective Start: 01/28/20 15:35 Freq: Status: Active Protocol: Document 05/14/20 14:31 MB (Rec: 05/14/20 15:15 MB [id number]) OP-PT Subjective Patient Comments Patient Comments Pt states that she had dry needling by Dr. Fernández 2 days ago and feels a little relief. She mentions that she had an injection in her left hip in December. She would like to follow-up with Dr. Fernández about spine MRI. She is having pain in the back of both legs. She has had a rough week. The evening of the needling, she had a large right glute muscle spasm and thought she would have to go to ED. She is taking muscle relaxer, CBD and anti-inflammatories. PT-OP-D Balance Start: 01/28/20 15:35 Freq: Status: Active Protocol: Document 01/29/20 13:45 MB (Rec: 01/29/20 15:10 MB [id number]) OP-PT Balance Assessment Sitting Balance Static Sitting Balance Ability Good Dynamic Sitting Balance Ability Good Sitting Balance Comments UE support, unweights left hip Standing Balance Static Standing Balance Ability Good Dynamic Standing Balance Ability Good Standing Balance Comments Off weights her left foot in standing Balance Tests Single Limb Standing Single Limb- Right 20 sec Single Limb- Left 20 sec Gandara Fall Scale Copyright Permission PT-OP-G Mobility & Gait Start: 01/28/20 15:35 Freq: Status: Active Protocol: Document 01/29/20 13:45 MB (Rec: 01/29/20 15:10 MB [id number]) OP Gait Assessment Gait Gait Assistance Required: Independent Distance (Feet) 100 Able to Maintain Weight Bearing Status Yes During Gait Gait Deviations General Gait Pattern Antalgic Comments Gait Comments Favors LLE with decreased step -length, left WB and push off PT-OP-J Posture/Palpation/Skin Start: 01/28/20 15:35 Freq: Status: Active Protocol: Document 01/29/20 13:45 MB (Rec: 01/29/20 15:10 MB [id number]) Posture Evaluation Comments Posture Comments Standing: decreased cervical lordosis, lower two cervical vertebra protruding, decreased thoracic kyphosis, increased lumbar lordosis, anterior tilt pelvis, left iliac crest 1/8 higher than the right, left lower ribs more protruded than the right, left SC joint is 1 /4 lower and more protruded than the right. She is right handed L SI stiff with right SB and mild discomfort with right SB. L SI joint stiff with compression in supine. Pt favors flexion and her hamstrings bend knees with reaching down to 2 above the floor. Her spinal extension is greatest at her thoracic and upper lumbar spine. No increased LE symptoms with repeated flexion and extension . PT-OP-K Range of Motion Start: 01/28/20 15:35 Freq: Status: Active Protocol: Document 01/29/20 13:45 MB (Rec: 01/29/20 15:10 MB [id number]) Lumbar Spine Range of Motion Lumbar Spine Active Comments L SI stiff with right SB and mild discomfort with right SB. L SI joint stiff with compression in supine. Pt favors flexion and her hamstrings bend knees with reaching down to 2 above the floor. Her spinal extension is greatest at her thoracic and upper lumbar spine. No increased LE symptoms with repeated flexion and extension . Hip Goniometric Range of Motion Hip ROM Limitations Comments B SLR no limitations and pt states that it feels good PT-OP-L Special Tests Start: 01/28/20 15:35 Freq: Status: Active Protocol: Document 01/29/20 13:45 MB (Rec: 01/29/20 15:10 MB [id number]) Special Tests Lumbar Spine Special Tests Slump Test Results R negative, L increased tightness to pain posterior left thigh to calf Hip Special Tests Scour Test Test Results Right negative, left provokes posterior hip pain CHE Test Results Tightness right greater than left hip, no real pain PT-OP-M Strength Start: 01/28/20 15:35 Freq: Status: Active Protocol: Document 01/29/20 13:45 MB (Rec: 01/29/20 15:10 MB [id number]) Hip Strength Hip Manual Muscle Testing Left Flexion (L2) 4 Good Extension (S1) 2+ Poor+ Abduction 3+ Fair+ Comments Supine hip flexion and abduction Prone hip extension Right Flexion (L2) 4 Good Extension (S1) 3 Fair Abduction 4 Good Reason Not Measured Behavior Comments Supine hip flexion and abduction Prone hip extension Knee Strength Knee Manual Muscle Testing Left Flexion (S2) 4 Good Extension (L3) 5 Normal Right Flexion (S2) 4 Good Extension (L3) 5 Normal Ankle/Foot Strength Ankle and Foot Manual Muscle Testing Left Dorsiflexion (L4) 5 Normal Right Dorsiflexion (L4) 5 Normal Toe Strength Toe Manual Muscle Testing Left Great Toe Extension 5 Normal Right Great Toe Extension 3+ Fair+ PT-OP-Q Treatments Start: 01/28/20 15:35 Freq: Status: Active Protocol: Document 05/14/20 14:31 MB (Rec: 05/14/20 15:15 MB [id number]) Manual Therapy Treatment Other Other Manual Treatments B STM proximal rectus abdominus, B iliopsoas, positional release right quads and left hamstrings, pt diaphragmatic breathing during treatment PT-OP-T Assessment and Plan Start: 01/28/20 15:35 Freq: Status: Active Protocol: Document 05/14/20 14:31 MB (Rec: 05/14/20 15:15 MB [id number]) Physical Therapy Assessment Rehab Potential Rehabilitation Potential Good Evaluation Complexity Number of Personal Factors/Comorbidities 0 Number of Body Systems Impaired 1-2 Clinical Presentation at Evaluation Evolving Impairments Impairments Gait,Pain,Posture,ROM,Soft Tissue Mobility,Strength Other Impairments Unsure if her clinical presentation is stable or evolving: she still has pain since October and since receiving dry needling, cortisone injection, Prednisone and muscle relaxer Goals 5 Custodial Goal (LTG) Pt will report an 85% improvement in back and leg pain and leg paresthesias by . 04/09/2020: Pt reports she was feeling much better after PT started but then pain has flared up since stopping PT. She has constant 3/10 pain in her left arm, LB and left glute. Her pain is worse in the morning. LTG Duration 8 weeks 4 Engineered Wood Designer Goal (LTG) Pt will perform progressive HEP including pelvic realignment, pelvic floor, appropriate flexibility, strengthening and balance exercises with I to reduce pain and improve strength by . 04/09/2020: Pt has not been performing HEP consistently LTG Duration 8 weeks 3 Engineered Wood Designer Goal (LTG) Pt will ascend and descend 7 steps with 1 rail and reciprocal gait pattern to allow safe home mobility by . 04/09/2020: Pt still has trouble with reciprocal stair training LTG Duration 8 weeks 2 Engineered Wood Designer Goal (LTG) Pt will present with improved B hip flexion and abduction and knee flexion strength to 5 / to improve sit to stand ability and stair mobility by 06/09/2020. 04/09/2020: B hip flexion 4/5; left knee flexion 4/5 and reports 4/10 pain; B hip abduction 4/5 LTG Duration 8 weeks 1 Engineered Wood Designer Goal (LTG) Pt will present with improved Oswestry LBP score to reflect no more than 15% impairment to allow return to normal active lifestyle by 06/09/2020. 04/09/2020: Oswestry LBP scale score reflects 40% impairment LTG Duration 8 weeks Assessment Summary Assessment Pt agrees to see pelvic floor runner PT. Her ongoing intense and radicular pain is a concern. PT encourages her to talk with Dr. Fernández about possible dxs. Physical Therapy Plan Frequency and Duration Frequency of Treatment 2x/Week Duration of Treatment 8 weeks Plan of Care Start Date 04/09/20 Plan of Care End Date 06/09/20 Therapeutic Interventions Therapeutic Interventions Aquatic Therapy,Balance Training,Gait Training,Home Exercise Program,Joint Mobilizations,Manual Therapy, Neuromuscular Re-education, Patient/Caregiver Education, Self-Care/Home Management, Sensory Integration,Soft Tissue Mobilization,Taping, Therapeutic Exercises Modalities Biofeedback,Cold Pack/Ice Massage,Electric Stimulation, Hot Packs,Ultrasound Other Therapeutic Interventions LLT Other Referrals/Consults Referrals/Consults Recommended May consider pelvic floor runner work as well Next Visit Focus/Plan Next Note Type Treatment Note Next Visit Plan Ther-ex further progression, quad rolling, progress pelvic and low back pain exercise progression
--- NOTE | 2020-05-20 18:13 | PT.OTN ---
Current Diagnoses Lesion of sciatic nerve, left lower limb (05/20/20) Low back pain (05/20/20) Iliotibial band syndrome, left leg (05/20/20) Physical Therapy Treatment Note PT-OP-A Visit Information Start: 01/28/20 15:35 Freq: Status: Active Protocol: Document 05/20/20 17:57 [facility] (Rec: 05/20/20 18:13 [facility] [email or web address]) Out-Patient Physical Therapy Visit Information Visit Information Visit Type Treatment Note Visit Start Time 13:45 Visit Stop Time 14:30 Total Visit Minutes 45 Visit Number 8 PT-OP-B Current Condition Start: 01/28/20 15:35 Freq: Status: Active Protocol: Document 01/29/20 13:45 MB (Rec: 01/29/20 14:44 MB [id number]) Current Condition History of Current Condition Onset Date October 2019 Current Complaints Sacral and LB and left ischial pain and left hamstring numbness History of Current Condition Left sacral and left ischial tuberosity pain and numbness down left hamstring and tenderness down lateral left leg proximal part after foot went out from under her with a jerk and catch down hill. She has numbness down to her left toes. Pt likes to hike and con't to take her dogs out. She uses her hiking sticks when she walks. Pt has trouble walking down the steps. She has 7 steps in the house. Her pain gets as bad as 8/10. 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 One was bad as far as the epidural. She felt like her center of gravity changed after first child. She describes inability to do aerial cartwheels and dive off spring board afterwards. Prior Treatments and Tests Left elbow and shoulder injury and ongoing left upper shoulder/neck pain after fall 10 years ago Left thumb arthritis and pain. Pt has been getting dry needling from Dr. Fernández for upper traps, mid back, sacrum and left glutes. She got a steroid injection in left greater trochanter bursa and she is on her third round of Prednisone. She occ takes muscle relaxer. Pelvis x-ray negative Treatment Goals Patient/Caregiver Goals To decrease pain and increase mobility and strength PT-OP-C Subjective Start: 01/28/20 15:35 Freq: Status: Active Protocol: Document 05/20/20 17:57 [facility] (Rec: 05/20/20 18:13 [facility] [email or web address]) OP-PT Subjective Patient Comments Patient Comments pt reports she has had a bad couple of days, she is really sore today. She doesn't feel that she has gotten much relief yet from the dry needling. She states pain radiates from her sacrum down the back of her legs. PT-OP-D Balance Start: 01/28/20 15:35 Freq: Status: Active Protocol: Document 01/29/20 13:45 MB (Rec: 01/29/20 15:10 MB [id number]) OP-PT Balance Assessment Sitting Balance Static Sitting Balance Ability Good Dynamic Sitting Balance Ability Good Sitting Balance Comments UE support, unweights left hip Standing Balance Static Standing Balance Ability Good Dynamic Standing Balance Ability Good Standing Balance Comments Off weights her left foot in standing Balance Tests Single Limb Standing Single Limb- Right 20 sec Single Limb- Left 20 sec Gandara Fall Scale Copyright Permission PT-OP-G Mobility & Gait Start: 01/28/20 15:35 Freq: Status: Active Protocol: Document 01/29/20 13:45 MB (Rec: 01/29/20 15:10 MB [id number]) OP Gait Assessment Gait Gait Assistance Required: Independent Distance (Feet) 100 Able to Maintain Weight Bearing Status Yes During Gait Gait Deviations General Gait Pattern Antalgic Comments Gait Comments Favors LLE with decreased step -length, left WB and push off PT-OP-J Posture/Palpation/Skin Start: 01/28/20 15:35 Freq: Status: Active Protocol: Document 01/29/20 13:45 MB (Rec: 01/29/20 15:10 MB [id number]) Posture Evaluation Comments Posture Comments Standing: decreased cervical lordosis, lower two cervical vertebra protruding, decreased thoracic kyphosis, increased lumbar lordosis, anterior tilt pelvis, left iliac crest 1/8 higher than the right, left lower ribs more protruded than the right, left SC joint is 1 /4 lower and more protruded than the right. She is right handed L SI stiff with right SB and mild discomfort with right SB. L SI joint stiff with compression in supine. Pt favors flexion and her hamstrings bend knees with reaching down to 2 above the floor. Her spinal extension is greatest at her thoracic and upper lumbar spine. No increased LE symptoms with repeated flexion and extension . PT-OP-K Range of Motion Start: 01/28/20 15:35 Freq: Status: Active Protocol: Document 01/29/20 13:45 MB (Rec: 01/29/20 15:10 MB [id number]) Lumbar Spine Range of Motion Lumbar Spine Active Comments L SI stiff with right SB and mild discomfort with right SB. L SI joint stiff with compression in supine. Pt favors flexion and her hamstrings bend knees with reaching down to 2 above the floor. Her spinal extension is greatest at her thoracic and upper lumbar spine. No increased LE symptoms with repeated flexion and extension . Hip Goniometric Range of Motion Hip ROM Limitations Comments B SLR no limitations and pt states that it feels good PT-OP-L Special Tests Start: 01/28/20 15:35 Freq: Status: Active Protocol: Document 01/29/20 13:45 MB (Rec: 01/29/20 15:10 MB [id number]) Special Tests Lumbar Spine Special Tests Slump Test Results R negative, L increased tightness to pain posterior left thigh to calf Hip Special Tests Scour Test Test Results Right negative, left provokes posterior hip pain CHE Test Results Tightness right greater than left hip, no real pain PT-OP-M Strength Start: 01/28/20 15:35 Freq: Status: Active Protocol: Document 01/29/20 13:45 MB (Rec: 01/29/20 15:10 MB [id number]) Hip Strength Hip Manual Muscle Testing Left Flexion (L2) 4 Good Extension (S1) 2+ Poor+ Abduction 3+ Fair+ Comments Supine hip flexion and abduction Prone hip extension Right Flexion (L2) 4 Good Extension (S1) 3 Fair Abduction 4 Good Reason Not Measured Behavior Comments Supine hip flexion and abduction Prone hip extension Knee Strength Knee Manual Muscle Testing Left Flexion (S2) 4 Good Extension (L3) 5 Normal Right Flexion (S2) 4 Good Extension (L3) 5 Normal Ankle/Foot Strength Ankle and Foot Manual Muscle Testing Left Dorsiflexion (L4) 5 Normal Right Dorsiflexion (L4) 5 Normal Toe Strength Toe Manual Muscle Testing Left Great Toe Extension 5 Normal Right Great Toe Extension 3+ Fair+ PT-OP-Q Treatments Start: 01/28/20 15:35 Freq: Status: Active Protocol: Document 05/20/20 17:57 [facility] (Rec: 05/20/20 18:13 [facility] [email or web address]) Therapeutic Exercises Supine Exercises 2 Supine Exercise Name EMG biofeedback for pelvic floor downtraining and contract/relax Reps/Minutes pt to hold up to 5 seconds and relax 10 or more seconds x 10 reps Comments working on relaxed awarenss of the pelvic floor. Average contraction is 7. Happy baby Comments 5 reps Pelvic drop Comments 5 reps, hold Diaphragmatic breathing Supine Exercise Name diaphragmatic breathing with cues to relax the pelvic floor on the inhale Comments 5 reps and cues for slowly Manual Therapy Treatment Other Other Manual Treatments manual assesment of the tone of the levator ani was performed. The patient was very tender on the lateral and posterior dallas of the levator ani. She presents with muscle spasm and guarding of the posterior and lateral dallas and decreased contraction of the anterior pelvic floor. There is grade 2 uterine prolapse present today. Pt does not feel the prolapse. Self-Care/Home Management Treatment Education Patient Education Body Mechanics,Pain Management Other Education pt educated on decompression of her pelvis to take pressure off the pelvic floor and uterine prolapse. Pt notes relief in this position PT-OP-T Assessment and Plan Start: 01/28/20 15:35 Freq: Status: Active Protocol: Document 05/20/20 17:57 [facility] (Rec: 05/20/20 18:13 [facility] [email or web address]) Physical Therapy Assessment Assessment Summary Assessment pelvic floor examination performed today to assess if the pelvic floor is contributing to Mary's pain. With examination she is very guarded and tender to palpation. Her lateral and posterior dallas of the levator ani are in spasm. She is weaker to contraction in the anterior pelvic floor. I also felt a grade 2 uterine prolapse with examination. Mary is not c/o prolapse symptoms at this time. I did a trial of pelvic decompression today placing mary on a wedge with her pelvis tilted and she notes a decrease in pain with this. We began EMG biofeedback for down training of the pelvic floor. With 10 reps of pelvic floor contract relax the resting tone did not increase and infact got a bit better. I felt comfortable giving Mary a 5 second hold and 10 second relax pelvic floor exercise for home. She was instructed to stop if she had pain with this. We will reassess her on EMG biofeedback next visit Physical Therapy Plan Frequency and Duration Frequency of Treatment 2x/Week Duration of Treatment 8 weeks Plan of Care Start Date 04/09/20 Plan of Care End Date 06/09/20
--- NOTE | 2020-05-28 17:44 | PT.OTN ---
Current Diagnoses Lesion of sciatic nerve, left lower limb (05/28/20) Low back pain (05/28/20) Iliotibial band syndrome, left leg (05/28/20) Physical Therapy Treatment Note PT-OP-A Visit Information Start: 01/28/20 15:35 Freq: Status: Active Protocol: Document 05/28/20 17:24 [facility] (Rec: 05/28/20 17:43 [facility] [email or web address]) Out-Patient Physical Therapy Visit Information Visit Information Visit Type Treatment Note Visit Start Time 13:00 Visit Stop Time 13:45 Total Visit Minutes 45 Visit Number 9 PT-OP-B Current Condition Start: 01/28/20 15:35 Freq: Status: Active Protocol: Document 01/29/20 13:45 MB (Rec: 01/29/20 14:44 MB [id number]) Current Condition History of Current Condition Onset Date October 2019 Current Complaints Sacral and LB and left ischial pain and left hamstring numbness History of Current Condition Left sacral and left ischial tuberosity pain and numbness down left hamstring and tenderness down lateral left leg proximal part after foot went out from under her with a jerk and catch down hill. She has numbness down to her left toes. Pt likes to hike and con't to take her dogs out. She uses her hiking sticks when she walks. Pt has trouble walking down the steps. She has 7 steps in the house. Her pain gets as bad as 8/10. 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 One was bad as far as the epidural. She felt like her center of gravity changed after first child. She describes inability to do aerial cartwheels and dive off spring board afterwards. Prior Treatments and Tests Left elbow and shoulder injury and ongoing left upper shoulder/neck pain after fall 10 years ago Left thumb arthritis and pain. Pt has been getting dry needling from Dr. Fernández for upper traps, mid back, sacrum and left glutes. She got a steroid injection in left greater trochanter bursa and she is on her third round of Prednisone. She occ takes muscle relaxer. Pelvis x-ray negative Treatment Goals Patient/Caregiver Goals To decrease pain and increase mobility and strength PT-OP-C Subjective Start: 01/28/20 15:35 Freq: Status: Active Protocol: Document 05/28/20 17:24 [facility] (Rec: 05/28/20 17:43 [facility] [email or web address]) OP-PT Subjective Patient Comments Patient Comments pt reports last visit really helped her and she has been using the decompression exercise at home. She has had difficulty with sustaining a contraction for longer than 5 seconds and she does get fatigued with the 5 second hold. PT-OP-D Balance Start: 01/28/20 15:35 Freq: Status: Active Protocol: Document 01/29/20 13:45 MB (Rec: 01/29/20 15:10 MB [id number]) OP-PT Balance Assessment Sitting Balance Static Sitting Balance Ability Good Dynamic Sitting Balance Ability Good Sitting Balance Comments UE support, unweights left hip Standing Balance Static Standing Balance Ability Good Dynamic Standing Balance Ability Good Standing Balance Comments Off weights her left foot in standing Balance Tests Single Limb Standing Single Limb- Right 20 sec Single Limb- Left 20 sec Gandara Fall Scale Copyright Permission PT-OP-G Mobility & Gait Start: 01/28/20 15:35 Freq: Status: Active Protocol: Document 01/29/20 13:45 MB (Rec: 01/29/20 15:10 MB [id number]) OP Gait Assessment Gait Gait Assistance Required: Independent Distance (Feet) 100 Able to Maintain Weight Bearing Status Yes During Gait Gait Deviations General Gait Pattern Antalgic Comments Gait Comments Favors LLE with decreased step -length, left WB and push off PT-OP-J Posture/Palpation/Skin Start: 01/28/20 15:35 Freq: Status: Active Protocol: Document 01/29/20 13:45 MB (Rec: 01/29/20 15:10 MB [id number]) Posture Evaluation Comments Posture Comments Standing: decreased cervical lordosis, lower two cervical vertebra protruding, decreased thoracic kyphosis, increased lumbar lordosis, anterior tilt pelvis, left iliac crest 1/8 higher than the right, left lower ribs more protruded than the right, left SC joint is 1 /4 lower and more protruded than the right. She is right handed L SI stiff with right SB and mild discomfort with right SB. L SI joint stiff with compression in supine. Pt favors flexion and her hamstrings bend knees with reaching down to 2 above the floor. Her spinal extension is greatest at her thoracic and upper lumbar spine. No increased LE symptoms with repeated flexion and extension . PT-OP-K Range of Motion Start: 01/28/20 15:35 Freq: Status: Active Protocol: Document 01/29/20 13:45 MB (Rec: 01/29/20 15:10 MB [id number]) Lumbar Spine Range of Motion Lumbar Spine Active Comments L SI stiff with right SB and mild discomfort with right SB. L SI joint stiff with compression in supine. Pt favors flexion and her hamstrings bend knees with reaching down to 2 above the floor. Her spinal extension is greatest at her thoracic and upper lumbar spine. No increased LE symptoms with repeated flexion and extension . Hip Goniometric Range of Motion Hip ROM Limitations Comments B SLR no limitations and pt states that it feels good PT-OP-L Special Tests Start: 01/28/20 15:35 Freq: Status: Active Protocol: Document 01/29/20 13:45 MB (Rec: 01/29/20 15:10 MB [id number]) Special Tests Lumbar Spine Special Tests Slump Test Results R negative, L increased tightness to pain posterior left thigh to calf Hip Special Tests Scour Test Test Results Right negative, left provokes posterior hip pain CHE Test Results Tightness right greater than left hip, no real pain PT-OP-M Strength Start: 01/28/20 15:35 Freq: Status: Active Protocol: Document 01/29/20 13:45 MB (Rec: 01/29/20 15:10 MB [id number]) Hip Strength Hip Manual Muscle Testing Left Flexion (L2) 4 Good Extension (S1) 2+ Poor+ Abduction 3+ Fair+ Comments Supine hip flexion and abduction Prone hip extension Right Flexion (L2) 4 Good Extension (S1) 3 Fair Abduction 4 Good Reason Not Measured Behavior Comments Supine hip flexion and abduction Prone hip extension Knee Strength Knee Manual Muscle Testing Left Flexion (S2) 4 Good Extension (L3) 5 Normal Right Flexion (S2) 4 Good Extension (L3) 5 Normal Ankle/Foot Strength Ankle and Foot Manual Muscle Testing Left Dorsiflexion (L4) 5 Normal Right Dorsiflexion (L4) 5 Normal Toe Strength Toe Manual Muscle Testing Left Great Toe Extension 5 Normal Right Great Toe Extension 3+ Fair+ PT-OP-Q Treatments Start: 01/28/20 15:35 Freq: Status: Active Protocol: Document 05/28/20 17:24 [facility] (Rec: 05/28/20 17:43 [facility] [email or web address]) Therapeutic Exercises Supine Exercises Happy baby Comments hold 1-2 minute Diaphragmatic breathing Supine Exercise Name diaphragmatic breathing with cues to relax the pelvic floor on the inhale Comments 5 reps and cues for slowly 1 Supine Exercise Name pelvic floor long holds Reps/Minutes 5 second hold time with 10 second relaxation Comments EMG biofeedback was utilized today for neurore-education of the pelvic floo Other Exercises 2 Other Exercise Name agnes pose Reps/Minutes holding 1-2 minutes 1 Other Exercise Name cat cow Reps/Minutes x 10 reps Neuro Re-Education Treatment Other Activities 1 Details EMG biofeedback of the pelvic floor musculatre Comments EMG biofeedback for resting tone of the pelvic floor with relaxed awareness training. PT-OP-T Assessment and Plan Start: 01/28/20 15:35 Freq: Status: Active Protocol: Document 05/28/20 17:24 [facility] (Rec: 05/28/20 17:43 [facility] [email or web address]) Physical Therapy Assessment Assessment Summary Assessment average contraction on EMG biofeedback today is 10.6 uv with max of 19.6 uv. Her reasing tone went as low as 1. 0 uv today which is excellent progress. I had her stick to 5 second hold time and 10 second relaxation time for home Physical Therapy Plan Frequency and Duration Frequency of Treatment 2x/Week Duration of Treatment 8 weeks Plan of Care Start Date 04/09/20 Plan of Care End Date 06/09/20 Next Visit Focus/Plan Next Note Type Treatment Note Next Visit Plan Continue to work on pelvic floor relaxation as well as slowly building up strength witout guarding.
--- NOTE | 2020-06-02 15:17 | PT-OP ANOTE ---
PT calls pt to check in. She is going to take a week off PT and con't pelvic PT next week. She does not know how much better she is doing. She is getting a MRI done of her pelvic area on 06/09/2020 before her next PT appointment. She is starting anti-inflammatory eating. She is not doing exercises as she should. Getting on the floor is troublesome because there is dog fur on the floor and she would have to vacuum, which causes pain. She is still looking into insurance issues.
--- NOTE | 2020-06-10 15:03 | PT.OTN ---
Current Diagnoses Lesion of sciatic nerve, left lower limb (06/10/20) Low back pain (06/10/20) Iliotibial band syndrome, left leg (06/10/20) Physical Therapy Treatment Note PT-OP-A Visit Information Start: 01/28/20 15:35 Freq: Status: Active Protocol: Document 06/10/20 10:29 [facility] (Rec: 06/10/20 10:46 [facility] [id number]) Out-Patient Physical Therapy Visit Information Visit Information Visit Type Treatment Note Visit Start Time 10:30 Visit Stop Time 11:15 Total Visit Minutes 45 Visit Number 10 PT-OP-B Current Condition Start: 01/28/20 15:35 Freq: Status: Active Protocol: Document 01/29/20 13:45 MB (Rec: 01/29/20 14:44 MB [id number]) Current Condition History of Current Condition Onset Date October 2019 Current Complaints Sacral and LB and left ischial pain and left hamstring numbness History of Current Condition Left sacral and left ischial tuberosity pain and numbness down left hamstring and tenderness down lateral left leg proximal part after foot went out from under her with a jerk and catch down hill. She has numbness down to her left toes. Pt likes to hike and con't to take her dogs out. She uses her hiking sticks when she walks. Pt has trouble walking down the steps. She has 7 steps in the house. Her pain gets as bad as 8/10. 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 One was bad as far as the epidural. She felt like her center of gravity changed after first child. She describes inability to do aerial cartwheels and dive off spring board afterwards. Prior Treatments and Tests Left elbow and shoulder injury and ongoing left upper shoulder/neck pain after fall 10 years ago Left thumb arthritis and pain. Pt has been getting dry needling from Dr. Fernández for upper traps, mid back, sacrum and left glutes. She got a steroid injection in left greater trochanter bursa and she is on her third round of Prednisone. She occ takes muscle relaxer. Pelvis x-ray negative Treatment Goals Patient/Caregiver Goals To decrease pain and increase mobility and strength PT-OP-C Subjective Start: 01/28/20 15:35 Freq: Status: Active Protocol: Document 06/10/20 10:29 [facility] (Rec: 06/10/20 10:46 [facility] [id number]) OP-PT Subjective Patient Comments Patient Comments had her MRI yesterday pelvic and lower back MRI. Has a appointment with Dr. Segundo on Monday. Has been using the dilator, found a area posterior and lateral both sides PT-OP-D Balance Start: 01/28/20 15:35 Freq: Status: Active Protocol: Document 01/29/20 13:45 MB (Rec: 01/29/20 15:10 MB [id number]) OP-PT Balance Assessment Sitting Balance Static Sitting Balance Ability Good Dynamic Sitting Balance Ability Good Sitting Balance Comments UE support, unweights left hip Standing Balance Static Standing Balance Ability Good Dynamic Standing Balance Ability Good Standing Balance Comments Off weights her left foot in standing Balance Tests Single Limb Standing Single Limb- Right 20 sec Single Limb- Left 20 sec Gandara Fall Scale Copyright Permission PT-OP-G Mobility & Gait Start: 01/28/20 15:35 Freq: Status: Active Protocol: Document 01/29/20 13:45 MB (Rec: 01/29/20 15:10 MB [id number]) OP Gait Assessment Gait Gait Assistance Required: Independent Distance (Feet) 100 Able to Maintain Weight Bearing Status Yes During Gait Gait Deviations General Gait Pattern Antalgic Comments Gait Comments Favors LLE with decreased step -length, left WB and push off PT-OP-J Posture/Palpation/Skin Start: 01/28/20 15:35 Freq: Status: Active Protocol: Document 01/29/20 13:45 MB (Rec: 01/29/20 15:10 MB [id number]) Posture Evaluation Comments Posture Comments Standing: decreased cervical lordosis, lower two cervical vertebra protruding, decreased thoracic kyphosis, increased lumbar lordosis, anterior tilt pelvis, left iliac crest 1/8 higher than the right, left lower ribs more protruded than the right, left SC joint is 1 /4 lower and more protruded than the right. She is right handed L SI stiff with right SB and mild discomfort with right SB. L SI joint stiff with compression in supine. Pt favors flexion and her hamstrings bend knees with reaching down to 2 above the floor. Her spinal extension is greatest at her thoracic and upper lumbar spine. No increased LE symptoms with repeated flexion and extension . PT-OP-K Range of Motion Start: 01/28/20 15:35 Freq: Status: Active Protocol: Document 01/29/20 13:45 MB (Rec: 01/29/20 15:10 MB [id number]) Lumbar Spine Range of Motion Lumbar Spine Active Comments L SI stiff with right SB and mild discomfort with right SB. L SI joint stiff with compression in supine. Pt favors flexion and her hamstrings bend knees with reaching down to 2 above the floor. Her spinal extension is greatest at her thoracic and upper lumbar spine. No increased LE symptoms with repeated flexion and extension . Hip Goniometric Range of Motion Hip ROM Limitations Comments B SLR no limitations and pt states that it feels good PT-OP-L Special Tests Start: 01/28/20 15:35 Freq: Status: Active Protocol: Document 01/29/20 13:45 MB (Rec: 01/29/20 15:10 MB [id number]) Special Tests Lumbar Spine Special Tests Slump Test Results R negative, L increased tightness to pain posterior left thigh to calf Hip Special Tests Scour Test Test Results Right negative, left provokes posterior hip pain CHE Test Results Tightness right greater than left hip, no real pain PT-OP-M Strength Start: 01/28/20 15:35 Freq: Status: Active Protocol: Document 01/29/20 13:45 MB (Rec: 01/29/20 15:10 MB [id number]) Hip Strength Hip Manual Muscle Testing Left Flexion (L2) 4 Good Extension (S1) 2+ Poor+ Abduction 3+ Fair+ Comments Supine hip flexion and abduction Prone hip extension Right Flexion (L2) 4 Good Extension (S1) 3 Fair Abduction 4 Good Reason Not Measured Behavior Comments Supine hip flexion and abduction Prone hip extension Knee Strength Knee Manual Muscle Testing Left Flexion (S2) 4 Good Extension (L3) 5 Normal Right Flexion (S2) 4 Good Extension (L3) 5 Normal Ankle/Foot Strength Ankle and Foot Manual Muscle Testing Left Dorsiflexion (L4) 5 Normal Right Dorsiflexion (L4) 5 Normal Toe Strength Toe Manual Muscle Testing Left Great Toe Extension 5 Normal Right Great Toe Extension 3+ Fair+ PT-OP-Q Treatments Start: 01/28/20 15:35 Freq: Status: Active Protocol: Document 06/10/20 14:52 [facility] (Rec: 06/10/20 15:03 [facility] [id number]) Therapeutic Exercises Supine Exercises 1 Supine Exercise Name pelvic floor long holds Reps/Minutes 5 second hold time with 10 second relaxation Comments EMG biofeedback was utilized today for neurore-education of the pelvic floo Manual Therapy Treatment Soft Tissue Mobilization 2 Body Location transverse perineal release Body Position Supine Comments left side tightness and pt does report this sends pain up to her low back where her symptoms are 1 Body Location manual release of the iliococcygeus musculature Mobilization Type Myofascial Release Intensity/Depth left side Self-Care/Home Management Treatment Education Patient Education Home Exercise Program Other Education pt educated to continue with her stretches for the posterior pelvic floor, dilator instruction use was reviewed to work on the posterior lateral tissue PT-OP-T Assessment and Plan Start: 01/28/20 15:35 Freq: Status: Active Protocol: Document 06/10/20 14:52 [facility] (Rec: 06/10/20 15:03 [facility] [id number]) Physical Therapy Assessment Goals Two Impairment hypertonicity of the levator ani L>R Short Term Goal (STG) Mary is educated in relaxed awareness of her pelvic floor and given stretches for home that help her relax STG Duration 4 weeks Environmental Monitoring Technician Goal (LTG) Mary is able to relax to baseline on EMG biofeedback LTG Duration 8 weeks 5 Environmental Monitoring Technician Goal (LTG) Pt will report an 85% improvement in back and leg pain and leg paresthesias by . 04/09/2020: Pt reports she was feeling much better after PT started but then pain has flared up since stopping PT. She has constant 3/10 pain in her left arm, LB and left glute. Her pain is worse in the morning. LTG Duration 8 weeks 4 Environmental Monitoring Technician Goal (LTG) Pt will perform progressive HEP including pelvic realignment, pelvic floor, appropriate flexibility, strengthening and balance exercises with I to reduce pain and improve strength by . 06/09/20: Pt has been working hard on her home exercise and stretching program LTG Duration 8 weeks 3 Alf Goal (LTG) Pt will ascend and descend 7 steps with 1 rail and reciprocal gait pattern to allow safe home mobility by . Pt still has trouble with reciprocal stair training LTG Duration 8 weeks 2 Environmental Monitoring Technician Goal (LTG) Pt will present with improved B hip flexion and abduction and knee flexion strength to 5 /5 to improve sit to stand ability and stair mobility by 06/09/2020. 04/09/2020: B hip flexion 4/5; left knee flexion 4/5 and reports 4/10 pain; B hip abduction 4/5 LTG Duration 8 weeks 1 Environmental Monitoring Technician Goal (LTG) Pt will present with improved Oswestry LBP score to reflect no more than 15% impairment to allow return to normal active lifestyle by 06/09/2020. 04/09/2020: Oswestry LBP scale score reflects 40% impairment LTG Duration 8 weeks Progress Towards Goals Progress Comments Mary is making steady progress with PT. Treatment has included work for her pelvic floor as she presented with elevated resting tone and hypertonicity of her pelvic floor muscles greater on the left which may be contributing to her symptoms. She also has a uterine prolapse which may be contributing to her complaints of pelvic pressure Assessment Summary Assessment We had to switch sensors today with EMG biofeedback as the one she had stopped working. Her resting tone was at baseline but I am not sure this is accurate due to the sensor manfulction. She was able to work on 10 second hold contractions but does fatigue quickly so I advised keeping with the 5 second holds for home and adding a few 10 second contractions at a time. I also started working on transverse perineal release and this was much tighter on the left side. Illiococcygeus tightness is on the left as compared to the right Physical Therapy Plan Frequency and Duration Frequency of Treatment 2x/Week Duration of Treatment 8 weeks Plan of Care Start Date 06/10/20 Plan of Care End Date 08/05/20 Therapeutic Interventions Therapeutic Interventions Aquatic Therapy,Balance Training,Gait Training,Home Exercise Program,Joint Mobilizations,Manual Therapy, Neuromuscular Re-education, Patient/Caregiver Education, Self-Care/Home Management, Sensory Integration,Soft Tissue Mobilization,Taping, Therapeutic Exercises Modalities Biofeedback,Cold Pack/Ice Massage,Electric Stimulation, Hot Packs,Ultrasound Other Therapeutic Interventions LLT
--- NOTE | 2020-06-10 15:03 | PT.OPPOC ---
Physical, Occupational & Speech Therapy At [facility] Current Diagnoses Lesion of sciatic nerve, left lower limb (06/10/20) Low back pain (06/10/20) Iliotibial band syndrome, left leg (06/10/20) Visit Care Team Role Provider Type Cortez Fernández DO Attending Provider Physician Primary Care Provider Referring Provider Specialty: Family Practice Address: [address] [place] [address], [facility] Email: Plan Of Care PT-OP-T Assessment and Plan Start: 01/28/20 15:35 Freq: Status: Active Protocol: Document 06/10/20 14:52 [facility] (Rec: 06/10/20 15:03 [facility] [id number]) Physical Therapy Assessment Goals Two Impairment hypertonicity of the levator ani L>R Short Term Goal (STG) Mary is educated in relaxed awareness of her pelvic floor and given stretches for home that help her relax STG Duration 4 weeks First Assistant Manager Goal (LTG) Mary is able to relax to baseline on EMG biofeedback LTG Duration 8 weeks 5 Usp Goal (LTG) Pt will report an 85% improvement in back and leg pain and leg paresthesias by . 04/09/2020: Pt reports she was feeling much better after PT started but then pain has flared up since stopping PT. She has constant 3/10 pain in her left arm, LB and left glute. Her pain is worse in the morning. LTG Duration 8 weeks 4 Usp Goal (LTG) Pt will perform progressive HEP including pelvic realignment, pelvic floor, appropriate flexibility, strengthening and balance exercises with I to reduce pain and improve strength by . 06/09/20: Pt has been working hard on her home exercise and stretching program LTG Duration 8 weeks 3 First Assistant Manager Goal (LTG) Pt will ascend and descend 7 steps with 1 rail and reciprocal gait pattern to allow safe home mobility by . Pt still has trouble with reciprocal stair training LTG Duration 8 weeks 2 Usp Goal (LTG) Pt will present with improved B hip flexion and abduction and knee flexion strength to 5 /5 to improve sit to stand ability and stair mobility by 06/09/2020. 04/09/2020: B hip flexion 4/5; left knee flexion 4/5 and reports 4/10 pain; B hip abduction 4/5 LTG Duration 8 weeks 1 First Assistant Manager Goal (LTG) Pt will present with improved Oswestry LBP score to reflect no more than 15% impairment to allow return to normal active lifestyle by 06/09/2020. 04/09/2020: Oswestry LBP scale score reflects 40% impairment LTG Duration 8 weeks Progress Towards Goals Progress Comments Mary is making steady progress with PT. Treatment has included work for her pelvic floor as she presented with elevated resting tone and hypertonicity of her pelvic floor muscles greater on the left which may be contributing to her symptoms. She also has a uterine prolapse which may be contributing to her complaints of pelvic pressure Assessment Summary Assessment We had to switch sensors today with EMG biofeedback as the one she had stopped working. Her resting tone was at baseline but I am not sure this is accurate due to the sensor malfunction. She was able to work on 10 second hold contractions but does fatigue quickly so I advised keeping with the 5 second holds for home and adding a few 10 second contractions at a time. I also started working on transverse perineal release and this was much tighter on the left side. Illiococcygeus tightness is on the left as compared to the right Physical Therapy Plan Frequency and Duration Frequency of Treatment 2x/Week Duration of Treatment 8 weeks Plan of Care Start Date 06/10/20 Plan of Care End Date 08/05/20 Therapeutic Interventions Therapeutic Interventions Aquatic Therapy,Balance Training,Gait Training,Home Exercise Program,Joint Mobilizations,Manual Therapy, Neuromuscular Re-education, Patient/Caregiver Education, Self-Care/Home Management, Sensory Integration,Soft Tissue Mobilization,Taping, Therapeutic Exercises Modalities Biofeedback,Cold Pack/Ice Massage,Electric Stimulation, Hot Packs,Ultrasound Other Therapeutic Interventions LLT Plan of Care Dates Plan of Care Start Date 06/10/20 Plan of Care End Date 08/05/20 Electronically Signed by: Floresita Clark, PT 06/10/20 [id number] Please Sign and Return: I have reviewed this Plan of Care and certify that the skilled therapy services above are required to meet the patient?s needs. Physician Signature Date Printed Name and Credentials Clinical Instructor Signature Printed Name and Credentials
--- NOTE | 2020-06-17 15:28 | PT.OTN ---
Current Diagnoses Lesion of sciatic nerve, left lower limb (06/17/20) Low back pain (06/17/20) Iliotibial band syndrome, left leg (06/17/20) Physical Therapy Treatment Note PT-OP-A Visit Information Start: 01/28/20 15:35 Freq: Status: Active Protocol: Document 06/17/20 15:16 [facility] (Rec: 06/17/20 15:28 AMH [id number]) Out-Patient Physical Therapy Visit Information Visit Information Visit Type Treatment Note Visit Start Time 12:00 Visit Stop Time 12:45 Total Visit Minutes 45 Visit Number 11 PT-OP-B Current Condition Start: 01/28/20 15:35 Freq: Status: Active Protocol: Document 01/29/20 13:45 MB (Rec: 01/29/20 14:44 MB [id number]) Current Condition History of Current Condition Onset Date October 2019 Current Complaints Sacral and LB and left ischial pain and left hamstring numbness History of Current Condition Left sacral and left ischial tuberosity pain and numbness down left hamstring and tenderness down lateral left leg proximal part after foot went out from under her with a jerk and catch down hill. She has numbness down to her left toes. Pt likes to hike and con't to take her dogs out. She uses her hiking sticks when she walks. Pt has trouble walking down the steps. She has 7 steps in the house. Her pain gets as bad as 8/10. 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 One was bad as far as the epidural. She felt like her center of gravity changed after first child. She describes inability to do aerial cartwheels and dive off spring board afterwards. Prior Treatments and Tests Left elbow and shoulder injury and ongoing left upper shoulder/neck pain after fall 10 years ago Left thumb arthritis and pain. Pt has been getting dry needling from Dr. Fernández for upper traps, mid back, sacrum and left glutes. She got a steroid injection in left greater trochanter bursa and she is on her third round of Prednisone. She occ takes muscle relaxer. Pelvis x-ray negative Treatment Goals Patient/Caregiver Goals To decrease pain and increase mobility and strength PT-OP-C Subjective Start: 01/28/20 15:35 Freq: Status: Active Protocol: Document 06/17/20 15:16 [facility] (Rec: 06/17/20 15:28 AMH [id number]) OP-PT Subjective Patient Comments Patient Comments Pt reports her low back has been sore today and she had to take a prednisone. She has been working on her stretching exercises at home though. Today is her last scheduled PT visit PT-OP-D Balance Start: 01/28/20 15:35 Freq: Status: Active Protocol: Document 01/29/20 13:45 MB (Rec: 01/29/20 15:10 MB [id number]) OP-PT Balance Assessment Sitting Balance Static Sitting Balance Ability Good Dynamic Sitting Balance Ability Good Sitting Balance Comments UE support, unweights left hip Standing Balance Static Standing Balance Ability Good Dynamic Standing Balance Ability Good Standing Balance Comments Off weights her left foot in standing Balance Tests Single Limb Standing Single Limb- Right 20 sec Single Limb- Left 20 sec Gandara Fall Scale Copyright Permission PT-OP-G Mobility & Gait Start: 01/28/20 15:35 Freq: Status: Active Protocol: Document 01/29/20 13:45 MB (Rec: 01/29/20 15:10 MB [id number]) OP Gait Assessment Gait Gait Assistance Required: Independent Distance (Feet) 100 Able to Maintain Weight Bearing Status Yes During Gait Gait Deviations General Gait Pattern Antalgic Comments Gait Comments Favors LLE with decreased step -length, left WB and push off PT-OP-J Posture/Palpation/Skin Start: 01/28/20 15:35 Freq: Status: Active Protocol: Document 01/29/20 13:45 MB (Rec: 01/29/20 15:10 MB [id number]) Posture Evaluation Comments Posture Comments Standing: decreased cervical lordosis, lower two cervical vertebra protruding, decreased thoracic kyphosis, increased lumbar lordosis, anterior tilt pelvis, left iliac crest 1/8 higher than the right, left lower ribs more protruded than the right, left SC joint is 1 /4 lower and more protruded than the right. She is right handed L SI stiff with right SB and mild discomfort with right SB. L SI joint stiff with compression in supine. Pt favors flexion and her hamstrings bend knees with reaching down to 2 above the floor. Her spinal extension is greatest at her thoracic and upper lumbar spine. No increased LE symptoms with repeated flexion and extension . PT-OP-K Range of Motion Start: 01/28/20 15:35 Freq: Status: Active Protocol: Document 01/29/20 13:45 MB (Rec: 01/29/20 15:10 MB [id number]) Lumbar Spine Range of Motion Lumbar Spine Active Comments L SI stiff with right SB and mild discomfort with right SB. L SI joint stiff with compression in supine. Pt favors flexion and her hamstrings bend knees with reaching down to 2 above the floor. Her spinal extension is greatest at her thoracic and upper lumbar spine. No increased LE symptoms with repeated flexion and extension . Hip Goniometric Range of Motion Hip ROM Limitations Comments B SLR no limitations and pt states that it feels good PT-OP-L Special Tests Start: 01/28/20 15:35 Freq: Status: Active Protocol: Document 01/29/20 13:45 MB (Rec: 01/29/20 15:10 MB [id number]) Special Tests Lumbar Spine Special Tests Slump Test Results R negative, L increased tightness to pain posterior left thigh to calf Hip Special Tests Scour Test Test Results Right negative, left provokes posterior hip pain CHE Test Results Tightness right greater than left hip, no real pain PT-OP-M Strength Start: 01/28/20 15:35 Freq: Status: Active Protocol: Document 01/29/20 13:45 MB (Rec: 01/29/20 15:10 MB [id number]) Hip Strength Hip Manual Muscle Testing Left Flexion (L2) 4 Good Extension (S1) 2+ Poor+ Abduction 3+ Fair+ Comments Supine hip flexion and abduction Prone hip extension Right Flexion (L2) 4 Good Extension (S1) 3 Fair Abduction 4 Good Reason Not Measured Behavior Comments Supine hip flexion and abduction Prone hip extension Knee Strength Knee Manual Muscle Testing Left Flexion (S2) 4 Good Extension (L3) 5 Normal Right Flexion (S2) 4 Good Extension (L3) 5 Normal Ankle/Foot Strength Ankle and Foot Manual Muscle Testing Left Dorsiflexion (L4) 5 Normal Right Dorsiflexion (L4) 5 Normal Toe Strength Toe Manual Muscle Testing Left Great Toe Extension 5 Normal Right Great Toe Extension 3+ Fair+ PT-OP-Q Treatments Start: 01/28/20 15:35 Freq: Status: Active Protocol: Document 06/17/20 15:16 [facility] (Rec: 06/17/20 15:28 AM[facility] [id number]) Therapeutic Exercises Supine Exercises 1 Supine Exercise Name pelvic floor long holds Reps/Minutes 10 second hold time with 10 second relaxation Comments EMG biofeedback average contraction is 10.0 with max of 19.6 uv Other Exercises 3 Other Exercise Name quadruped TA facilitation Reps/Minutes x 10 Comments inhale and relax , exhale and contract 2 Other Exercise Name agnes pose Reps/Minutes holding 1-2 minutes 1 Other Exercise Name cat cow Reps/Minutes x 10 reps Comments with cues to inhale and relax the abdominal wall Manual Therapy Treatment Soft Tissue Mobilization 3 Body Location STM/MFR lumbar paraspinals Comments pt in agnes pose position for manual release of the lumbar paraspinals Neuro Re-Education Treatment Other Activities 1 Details EMG biofeedback of the pelvic floor musculatre Comments Average resting tone was 2 and below today, this is great progress PT-OP-T Assessment and Plan Start: 01/28/20 15:35 Freq: Status: Active Protocol: Document 06/17/20 15:16 [facility] (Rec: 06/17/20 15:28 [facility] [id number]) Physical Therapy Assessment Assessment Summary Assessment Mary had a really good resting tone of her pelvic floor today and she was able to sustain a contraction fo 10 seconds without any muscle spasm in her pelvic floor. This is really good progress. I helped her with her breathing with the cat cow and quadraped TA facilitation. She is doing better at releasing tension in her abdominal wall. She was given a size xs dilator today to help with trigger points. At this point she feel independent with her home program and will be discharged to a [facility] and will follow up should she feel she needs more treatment. Physical Therapy Plan Discharge Physical Therapy Discharge Reasons Patient Request Discharge Comments Pt is ng pay for her PT, she feels at this point she has a handle on her exercises for home. She may have a home visit to help her organize her exercises but will be discharged from hospital based PT today.
== END 2020-06-24 15:12 ==
LOC: PHYS 12:00
PROVIDERS: PCP Family Medicine; Referring Provider Family Medicine; Visit Provider Family Medicine
DX: G57.02 Lesion of sciatic nerve, left lower limb (principal); M54.5 Low back pain; M76.32 Iliotibial band syndrome, left leg
CPT/HCPCS: 97110; 97112; 97140; 97161; 97530; 97535

== ENCOUNTER → 2020-07-14 16:11 | Outpatient (CLI) | payer OTHER, SELFPAY ==
[2020-07-16 10:17] LABS: Fecal Immunochemical Test Negative (Negative)
== END ==
PROVIDERS: PCP Family Medicine; Referring Provider Obstetrics & Gynecology; Visit Provider Obstetrics & Gynecology
DX: Z12.11 Encounter for screening for malignant neoplasm of colon (principal)
CPT/HCPCS: 82274

== ENCOUNTER → 2022-06-21 14:17 | Outpatient (CLI) | payer OTHER, SELFPAY ==
--- NOTE | 2022-06-21 | DI.MG.S_ITS ---
BILATERAL DIGITAL SCREENING MAMMOGRAM 3D/2D WITH CAD: 06/21/2022 CLINICAL: Routine screening. Comparison is made to exams dated: 10/04/2016 mammogram, 09/28/2015 mammogram, 08/07/2014 mammogram, and 11/17/2011 mammogram - [facility]. The tissue of both breasts is heterogeneously dense. This may lower the sensitivity of mammography. Current study was also evaluated with a Computer Aided Detection (CAD) system. No significant masses, calcifications, or other findings are seen in either breast. There has been no significant interval change. IMPRESSION: NEGATIVE There is no mammographic evidence of malignancy. A 1 year screening mammogram is recommended. Based on the Tyrer Cuzick model (a risk assessment model) the patient's lifetime risk is 11.3% and her 10 year risk is 3.3%. According to the ACR, ACS, and NCCN guidelines, an annual breast MRI exam along with mammogram is recommended if the patient's lifetime risk is 20% or greater. This exam was interpreted at Station ID: [id number]. NOTE: For mammograms, a report in lay terms will be sent to the patient. Approximately 15% of breast malignancies will not be visualized mammographically. In the management of a palpable breast mass, a negative mammogram must not discourage biopsy of a clinically suspicious lesion. Electronically Signed By: Lavelle blackwood/froylan:06/21/2022 17:50:58 letter sent: Normal Exam ACR BI-RADS Category 1: Negative 3341F
== END ==
PROVIDERS: PCP Family Medicine; Referring Provider Family Medicine; Visit Provider Family Medicine
DX: Z12.31 Encounter for screening mammogram for malignant neoplasm of breast (principal)
CPT/HCPCS: 77063; 77067

== ENCOUNTER → 2022-10-29 07:57 | Outpatient (CLI) | payer OTHER, SELFPAY ==
[2022-10-29 10:58] LABS: Add Manual Diff / Slide Review NO; Basophils Absolute Auto 100 /uL (0-100); Basophils Percent Auto 1.4 % (0-2); Eosinophils Absolute Auto 300 /uL (0-450); Eosinophils Percent Auto 5.2 % (2-4); Hematocrit 40.3 % (36-46); Hemoglobin 12.9 g/dL (12.0-16.0); Lymphocytes Absolute Auto 1500 /uL (1100-4500); Lymphocytes Percent Auto 29.9 % (25-40); Mean Corpuscular HGB Conc 32.1 % (30-36); Mean Corpuscular Hemoglobin 30.8 PG (26-34); Mean Corpuscular Volume 95.7 fL (80-100); Monocytes Absolute Auto 500 /uL (0-900); Neutrophils Absolute Auto 2700 /uL (1500-7000); Neutrophils Percent Auto 53.5 % (50-75); Platelet Count 290 X10^3/uL (150-400); Red Blood Cell Count 4.21 X10^6/uL (4.0-5.2); Red Cell Distribution Width 13.1 % (11.6-14.8)
[2022-10-29 11:32] LABS: Alanine Aminotransferase 25 IU/L (<35); Albumin 4.3 g/dL (3.5-5.0); Albumin Globulin Ratio 1.7 (1.0-2.8); Alkaline Phosphatase 41 U/L (38-126); Aspartate Aminotransferase 31 IU/L (14-36); BUN Creatinine Ratio 16.7 (6-22); Bilirubin Total 0.4 mg/dL (0.2-1.3); Blood Urea Nitrogen 14 mg/dL (7-17); Carbon Dioxide 29 mmol/L (22-32); Chloride 102 mmol/L (98-107); Cholesterol 195 mg/dL (140-199); Estimated Glomerular Filt Rate > 60 mL/min (>60); Globulin 2.6 g/dL (1.7-4.1); Glucose 95 mg/dL (70-100); HDL Cholesterol 72 mg/dL (40-60); HEMOLYSIS < 15 (0-50); LDL Cholesterol Calculated 113 mg/dL (<100); Potassium 4.3 mmol/L (3.4-5.1); Sodium 137 mmol/L (137-145); Total Protein 6.9 g/dL (6.3-8.2); Triglycerides 52 mg/dL (35-150)
[2022-10-29 11:42] LABS: Vitamin D 25 Hydroxy (D3) 47.5 ng/mL (30.0-100.0)
[2022-10-29 11:45] LABS: Free T3, Triiodothyronine Free 3.37 pg/mL (2.77-5.27); Free T4, Direct Thyroxine 1.13 ng/dL (0.78-2.19)
== END ==
PROVIDERS: PCP Family Medicine; Referring Provider Family Medicine; Visit Provider Family Medicine
DX: F33.1 Major depressive disorder, recurrent, moderate (principal); L30.9 Dermatitis, unspecified; Z13.9 Encounter for screening, unspecified
CPT/HCPCS: 36415; 80053; 80061; 82306; 84439; 84443; 84481; 85025

== ENCOUNTER → 2023-03-07 12:53 | Outpatient (CLI) | payer OTHER, SELFPAY | PROVIDERS: PCP Family Medicine; Visit Provider Physician Assistant | DX: J02.9 Acute pharyngitis, unspecified (principal) | CPT/HCPCS: 87070 ==

== ENCOUNTER → 2023-06-06 11:46 | Outpatient (CLI) | payer OTHER, SELFPAY ==
[2023-06-07 14:36] LABS: Fecal Immunochemical Test Negative (Negative)
== END ==
PROVIDERS: PCP Family Medicine; Referring Provider Family Medicine; Visit Provider Family Medicine
DX: Z12.11 Encounter for screening for malignant neoplasm of colon (principal)
CPT/HCPCS: 82274

== ENCOUNTER → 2023-10-10 17:16 | Outpatient (CLI) | payer OTHER, SELFPAY ==
--- NOTE | 2023-10-10 17:21 | DI.RAD.S_ITS ---
PROCEDURE: XR FOOT RT MIN 3V INDICATIONS: eval bilateral feet TECHNIQUE: Three views of the foot were acquired. COMPARISON: None. FINDINGS: Bones: No acute fractures or dislocations. No suspicious bony lesions. Mild degenerative changes of the 1st metatarsophalangeal joint. Soft tissues: No suspicious soft tissue calcification. 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 No acute osseous abnormality. If the symptoms persist, consider cross sectional imaging such as MRI or CT for further assessment. Approved by: Ga Anne M.D. on 10/11/2023 at 11:23
--- NOTE | 2023-10-10 17:21 | DI.RAD.S_ITS ---
PROCEDURE: XR FOOT LT MIN 3V INDICATIONS: eval bilateral feet TECHNIQUE: 3 views of the foot were acquired. COMPARISON: [facility], , FOOT 3V LEFT, 05/01/2012, 16:48. FINDINGS: Bones: No acute fractures or dislocations. No suspicious bony lesions. Mild degenerative changes at the 1st metatarsophalangeal joint. Soft tissues: No suspicious soft tissue calcification. 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 No acute osseous abnormality. If the symptoms persist, consider cross sectional imaging such as MRI or CT for further assessment. Approved by: Ga Anne M.D. on 10/11/2023 at 11:23
== END ==
PROVIDERS: PCP Family Medicine; Referring Provider Family Medicine; Visit Provider Family Medicine
DX: M19.072 Primary osteoarthritis, left ankle and foot (principal); M19.071 Primary osteoarthritis, right ankle and foot; M20.10 Hallux valgus (acquired), unspecified foot
CPT/HCPCS: 73630

== ENCOUNTER → 2024-12-19 11:05 | Outpatient (CLI) | payer OTHER, SELFPAY ==
--- NOTE | 2024-12-19 11:06 | DI.MG.S_ITS ---
BILATERAL DIGITAL SCREENING MAMMOGRAM 3D/2D WITH CAD: 12/19/2024 CLINICAL: Routine screening. Comparison is made to exams dated: 06/21/2022 mammogram, 10/04/2016 mammogram, and 09/28/2015 mammogram - [facility]. There are scattered areas of fibroglandular density (category b / 25%-50% glandular tissue). Current study was also evaluated with a Computer Aided Detection (CAD) system. There is possible developing irregular architectural distortion in the left breast middle depth lateral region seen on the craniocaudal view only. No other significant masses, calcifications, or other findings are seen in either breast. IMPRESSION: INCOMPLETE: NEED ADDITIONAL IMAGING EVALUATION The possible developing irregular architectural distortion in the left breast is indeterminate. Additional views with possible ultrasound are recommended. Based on the Tyrer Cuzick model (a risk assessment model) the patient's lifetime risk is 7.4% and her 10 year risk is 2.4%. According to the ACR, ACS, and NCCN guidelines, an annual breast MRI exam along with mammogram is recommended if the patient's lifetime risk is 20% or greater. This exam was interpreted at Station ID: [id number]. NOTE: For mammograms, a report in lay terms will be sent to the patient. Approximately 15% of breast malignancies will not be visualized mammographically. In the management of a palpable breast mass, a negative mammogram must not discourage biopsy of a clinically suspicious lesion. Electronically Signed By: Igor messer/froylan:12/19/2024 15:58:36 letter sent: Additional Imaging Needed ACR BI-RADS Category 0: Incomplete: Need Additional Imaging Evaluation
== END ==
PROVIDERS: PCP Family Medicine; Referring Provider Family Medicine; Visit Provider Family Medicine
DX: Z12.31 Encounter for screening mammogram for malignant neoplasm of breast (principal)
CPT/HCPCS: 77063; 77067

== ENCOUNTER → 2024-12-20 07:22 | Outpatient (CLI) | payer OTHER, SELFPAY ==
[2024-12-20 08:22] LABS: Add Manual Diff / Slide Review NO; Basophils Absolute Auto 100 /uL (0-100); Basophils Percent Auto 1.3 % (0-2); Eosinophils Absolute Auto 500 /uL (0-450); Eosinophils Percent Auto 8.8 % (2-4); Hemoglobin 13.7 g/dL (12.0-16.0); Lymphocytes Absolute Auto 1500 /uL (1100-4500); Lymphocytes Percent Auto 26.2 % (25-40); Mean Corpuscular HGB Conc 33.3 % (30-36); Mean Corpuscular Hemoglobin 31.9 PG (26-34); Mean Corpuscular Volume 95.7 fL (80-100); Monocytes Absolute Auto 400 /uL (0-900); Monocytes Percent Auto 7.6 % (3-14); Neutrophils Absolute Auto 3200 /uL (1500-7000); Neutrophils Percent Auto 56.1 % (50-75); Platelet Count 315 X10^3/uL (150-400); Red Blood Cell Count 4.28 X10^6/uL (4.0-5.2); Red Cell Distribution Width 12.2 % (11.6-14.8); White Blood Cell Count 5.7 X10^3/uL (4.5-11.0)
[2024-12-20 08:47] LABS: Alanine Aminotransferase 26 IU/L (<35); Albumin 4.3 g/dL (3.5-5.0); Albumin Globulin Ratio 1.7 (1.0-2.8); Alkaline Phosphatase 40 U/L (38-126); Aspartate Aminotransferase 39 IU/L (14-36); BUN Creatinine Ratio 19.1 (6-22); Bilirubin Total 0.5 mg/dL (0.2-1.3); Blood Urea Nitrogen 17 mg/dL (7-17); Calcium 9.1 mg/dL (8.4-10.2); Carbon Dioxide 28 mmol/L (22-32); Chloride 104 mmol/L (98-107); Cholesterol 210 mg/dL (140-199); Estimated Glomerular Filt Rate > 60 mL/min (>60); Globulin 2.5 g/dL (1.7-4.1); Glucose 98 mg/dL (70-100); HDL Cholesterol 94 mg/dL (40-60); HEMOLYSIS < 15 (0-50); LDL Cholesterol Calculated 106 mg/dL (<100); Sodium 135 mmol/L (137-145); Total Protein 6.8 g/dL (6.3-8.2); Triglycerides 48 mg/dL (35-150)
[2024-12-20 08:56] LABS: Vitamin D 25 Hydroxy (D3) 40.8 ng/mL (30.0-100.0)
[2024-12-20 09:29] LABS: Vitamin B12 910 pg/mL (239-931)
[2024-12-23 10:23] LABS: Fecal Immunochemical Test Negative (Negative)
== END ==
PROVIDERS: PCP Family Medicine; Referring Provider Family Medicine; Visit Provider Family Medicine
DX: Z13.220 Encounter for screening for lipoid disorders (principal); N92.6 Irregular menstruation, unspecified; Z12.11 Encounter for screening for malignant neoplasm of colon
CPT/HCPCS: 36415; 80053; 80061; 82274; 82306; 82607; 84443; 85025

== ENCOUNTER → 2025-01-15 13:11 | Outpatient (CLI) | payer OTHER, SELFPAY ==
--- NOTE | 2025-01-15 13:14 | DI.MG.S_ITS ---
UNILATERAL LEFT DIGITAL DIAGNOSTIC MAMMOGRAM 3D/2D WITH ADDITIONAL VIEWS: 01/15/2025 CLINICAL: Additional evaluation requested from prior study. Comparison is made to exams dated: 12/19/2024 mammogram, 06/21/2022 mammogram, and 10/04/2016 mammogram - [facility]. There are scattered areas of fibroglandular density (category b / 25%-50% glandular tissue). There is possible subtle architectural distortion in the left breast at 3 o'clock middle depth. This finding corresponds to finding seen on recent screening mammogram. No significant masses, calcifications, or other findings are seen in the breast. IMPRESSION: INCOMPLETE: NEED ADDITIONAL IMAGING EVALUATION Left breast possible architectural distortion at 3 o'clock middle depth. Recommend further evaluation with targeted breast ultrasound, which will immediately follow this exam. Based on the Tyrer Cuzick model (a risk assessment model) the patient's lifetime risk is 7.4% and her 10 year risk is 2.4%. According to the ACR, ACS, and NCCN guidelines, an annual breast MRI exam along with mammogram is recommended if the patient's lifetime risk is 20% or greater. This exam was interpreted at Station ID: [id number]. NOTE: For mammograms, a report in lay terms will be sent to the patient. Approximately 15% of breast malignancies will not be visualized mammographically. In the management of a palpable breast mass, a negative mammogram must not discourage biopsy of a clinically suspicious lesion. Electronically Signed By: Vaishnavi Hernandez M.D., Ph.D. eb/:01/15/2025 16:07:52 letter sent: Additional Imaging Needed ACR BI-RADS Category 0: Incomplete: Need Additional Imaging Evaluation
--- NOTE | 2025-01-15 14:24 | DI.US.S_ITS ---
LIMITED ULTRASOUND OF LEFT BREAST AND AXILLA: 01/15/2025 CLINICAL: Patient returns today to evaluate a focal asymmetry in the left breast. Comparison is made to exams dated: 01/15/2025 mammogram, 12/19/2024 mammogram, 06/21/2022 mammogram, 10/04/2016 mammogram, 09/28/2015 mammogram, and 08/07/2014 mammogram - [facility]. Color flow and real-time ultrasound of the left breast 2-4 o'clock, and axilla regions were performed. Rogers scale images of the real-time examination were reviewed. There is a 0.8 cm x 0.7 cm x 0.8 cm irregular mass with an indistinct margin in the left breast at 3 o'clock middle depth. This irregular mass is hypoechoic. This may correlate with mammography findings. No abnormal lymph nodes are seen in the axilla. IMPRESSION: SUSPICIOUS Left breast 0.8 cm irregular mass at 3 o'clock position. Finding is suspicious. Recommend ultrasound guided core biopsy with attention to clip placement on post biopsy mammogram. Findings and recommendations were conveyed to the patient during today's evaluation. This exam was interpreted at Station ID: [id number]. Electronically Signed By: Vaishnavi Hernandez M.D., Ph.D. eb/:01/15/2025 16:11:30 letter sent: Biopsy Required ACR BI-RADS Category 4: Suspicious
== END ==
PROVIDERS: PCP Family Medicine; Referring Provider Family Medicine; Visit Provider Family Medicine
DX: R92.8 Other abnormal and inconclusive findings on diagnostic imaging of breast (principal); N63.25 Unspecified lump in the left breast, overlapping quadrants
CPT/HCPCS: 76642; 77065; G0279

== ENCOUNTER → 2025-01-24 08:31 | Outpatient (CLI) | payer OTHER, SELFPAY ==
--- NOTE | 2025-01-24 08:32 | DI.US.S_ITS ---
ULTRASOUND GUIDED BIOPSY LEFT BREAST WITH MARKING DEVICE INSERTED AND POST DIGITAL MAMMOGRAPHIC IMAGIN01/24/2025 CLINICAL: Left breast mass. PATIENT CONSENT: Risks (minor bleeding, infection, vasovagal reaction and repeat procedure), benefits and alternatives were explained to the patient and written informed consent was obtained. Correlation is made to exams dated: 01/24/2025 mammogram, 01/15/2025 ultrasound, 01/15/2025 mammogram, and 12/19/2024 mammogram - [facility]. An ultrasound guided biopsy using real-time ultrasound was performed for the 0.8 cm irregular shaped asymmetry located in the left breast at 3 o'clock middle depth 6 cm from the nipple. This was described on the previous ultrasound report. The skin was prepped in the usual manner. Local anesthetic was administered to the access site. A small incision was made in the breast. The abnormality was approached from the lateral aspect. A biopsy needle was placed adjacent to the abnormality under ultrasound guidance. Once the needle was documented to be in the correct location, four specimens were obtained using a BARD biopsy device. The patient received additional local anesthetic during the procedure. A clip was inserted into the biopsy cavity. A skin adhesive was applied to the access site. Post procedure digital mammographic imaging demonstrates the location device at the targeted area. The specimens were sent to the laboratory for pathological analysis. IMPRESSION: ULTRASOUND GUIDED BIOPSY BENIGN Ultrasound guided biopsy of the 0.8 cm asymmetry in the left breast at 3 o'clock middle depth 6 cm from the nipple was successful with no apparent post procedure complications. Pathology indicates fragments of benign breast parenchyma, non-specific. Negative for epithelial atypia or malignancy. Pathology results are concordant with imaging findings. A follow-up ultrasound in 6 months is recommended to demonstrate stability. This exam was interpreted at Station ID: [id number]. Barak henry,slc/:02/03/2025 12:22:45
--- NOTE | 2025-01-24 08:33 | DI.MG.S_ITS ---
UNILATERAL LEFT DIGITAL DIAGNOSTIC MAMMOGRAM 3D/2D POST-PROCEDURE IMAGING FOR MARKER PLACEMENT: 01/24/2025 CLINICAL: Left post clip. Comparison is made to exams dated: 01/15/2025 ultrasound, 01/15/2025 mammogram, and 12/19/2024 mammogram - [facility]. There are scattered areas of fibroglandular density (category b / 25%-50% glandular tissue). There is a marker clip in the appropriate position in the left breast at 4 o'clock posterior depth. This marker clip placement is at the biopsy site. IMPRESSION: POST PROCEDURE MAMMOGRAM FOR MARKER PLACEMENT There was a successful marker clip placement in the left breast posterior depth. Based on the Tyrer Cuzick model (a risk assessment model) the patient's lifetime risk is 7.4% and her 10 year risk is 2.4%. According to the ACR, ACS, and NCCN guidelines, an annual breast MRI exam along with mammogram is recommended if the patient's lifetime risk is 20% or greater. This exam was interpreted at Station ID: [id number]. NOTE: For mammograms, a report in lay terms will be sent to the patient. Approximately 15% of breast malignancies will not be visualized mammographically. In the management of a palpable breast mass, a negative mammogram must not discourage biopsy of a clinically suspicious lesion. Electronically Signed By: Barak Mccullough M.D. jl/:01/24/2025 13:54:44 ACR BI-RADS Category Post-Procedure Mammogram for Marker Placement
--- NOTE | 2025-01-24 09:51 | PATH_ITS ---
[facility] Accession Number: [id number] No. of containers..01 Tissue . 01 Material submitted: . breast - LT BREAST X 4 3:00 6CMFN . 01 Clinical history: . 3:00 6CMFN . 01 Diagnosis: LEFT BREAST X4, 3 O'CLOCK, 6 CM FROM NIPPLE, NEEDLE CORE BIOPSIES: Fragments of benign breast parenchyma, non-specific. Negative for epithelial atypia or malignancy. No definite mass identified; please correlate with imaging and clinical findings. MRV 01/27/2025 1601 Local . 01 Comment: This case was also reviewed by Dr. Marylu Kraft (Julie), who agrees with the interpretation. . 01 Electronically signed: . Jazmín Hogan MD, Pathologist NPI- [id number] . 01 Gross description: . Received one formalin-filled container, labeled with the patient's name and L breast 3 o'clock 6 cm FN. The sample is received with a plastic filter, sample loose in container and consists of four yellow-dixon pieces of soft tissue which range in size from 1.0 x 0.3 x 0.3 cm to 1.5 x 0.3 x 0.3 cm. All fragments are totally submitted in one cassette. . Collection date per requisition: 01/24/2025. Possible collection time per container: 09:30. Time in formalin not provided. Cold ischemic time cannot be calculated. Total fixation time is approximately 18 hours. ([id number]) /FRR 01/25/2025 1002 Local . 01 Pathologist provided ICD-10: N63.20 . 01 CPT . 745466 Specimen Comment: A courtesy copy of this report has been sent to [phone] Spec[facility] Comment: Health Pathology Performed at: [address] [facility] [place], [place], [place] [id number] MD Antony Chavez MD Phone: [phone]
== END ==
PROVIDERS: PCP Family Medicine; Referring Provider Family Medicine; Visit Provider Family Medicine
DX: R92.8 Other abnormal and inconclusive findings on diagnostic imaging of breast (principal); N63.23 Unspecified lump in the left breast, lower outer quadrant
CPT/HCPCS: 19083; 77065